=== PATIENT | male | born 1930 | race Caucasian/White ===

== ENCOUNTER 2018-01-16 08:34 | Inpatient (IN) ==
[2018-01-16] MEDS ORDERED: SODIUM CHLORIDE 0.9% 500 ML IV STA (09:12)
[2018-01-16 09:40] LABS: Basophils % 0.2 % (0.0-0.8); Hematocrit 40.8 VOL% (42.0-52.0); Hemoglobin 13.8 GM/DL (14.0-18.0); Immature Granulocytes % 0.5 %; Immature Granulocytes Absolute 0.05 #; Lymphocytes # 0.7 10*3/uL (1.4-4.0); Lymphocytes % 6.8 % (21.2-54.2); Mean Corpuscular HGB Conc 33.8 GM/DL (32-36); Mean Corpuscular Hemoglobin 33 PG (27-34); Mean Corpuscular Volume 96.5 FL (87-102); Monocytes # 0.5 10*3/uL (0.11-0.8); Monocytes % 4.7 % (1.7-12.7); Neutrophils # 9.4 10*3/uL (1.4-7.4); Neutrophils % 87.8 % (38.7-73.9); Platelet Count 279 T/CUMM (130-400); Red Blood Count 4.23 MC/CUMM (3.8-5.5); Red Cell Distribution Width 15.1 % (9.3-17.3); White Blood Count 10.7 T/CUMM (4-12)
[2018-01-16 09:58] LABS: Alanine Aminotransferase 29 U/L (16-61); Alkaline Phosphatase 76 U/L (45-117); Aspartate Amino Transferase 35 U/L (0-37); Blood Urea Nitrogen 30 MG/DL (7-18); Calcium 9.7 MG/DL (8.5-10.1); Glucose 166 MG/DL (74-106); Osmolality,Calculated 279.1 MOS/KG (273-304); Potassium 3.6 MMOL/L (3.5-5.1); Sodium 135 MMOL/L (136-145); Total Protein 8.9 G/DL (6.4-8.3); Troponin I Only < 0.015 NG/ML (0.00-0.045)
[2018-01-16] MEDS ORDERED: PIPERACILLIN/TAZOBACTAM 3,375 MG in SODIUM CHLORIDE 0.9% 100 ML IV STA (10:52)
[2018-01-16 11:44] LABS: Apearance,Urine CLEAR (Clear); Bilirubin,Urine Negative (Negative); Blood, Urine Negative (Negative); Glucose,Urine (UA) Negative (Negative); Ketones,Urine Negative (Negative); Nitrite,Urine Negative (Negative); Protein,Urine Negative; Squamous Epithelial Cell,Urine Occasional /HPF (0-10); Urine Color Yellow (Yellow); Urine Urobilinogen < 2.0 EU/DL (0.2-1.0); WBC,Urine <1 /HPF (0-6)
[2018-01-16] MEDS ORDERED: fentaNYL 100 MCG/2 ML VIAL ONE (13:41)
[2018-01-16] MEDS ORDERED: MIDAZOLAM 2 MG/2 ML VIAL ONE (13:41)
[2018-01-16] MEDS ORDERED: SEVOFLURANE 1 UNIT/15 MINUTE INH ONE (13:41)
[2018-01-16] MEDS ORDERED: ETOMIDATE 40 MG/20 ML VIAL IV ONE (13:41)
[2018-01-16 13:42] LABS: Apearance,Urine CLEAR (Clear); Bilirubin,Urine Negative (Negative); Blood, Urine Small mg/dL (Negative); Glucose,Urine (UA) Negative (Negative); Ketones,Urine Negative (Negative); Nitrite,Urine Negative (Negative); Protein,Urine Negative; RBC,Urine 1 /HPF (0-4); Urine Color Yellow (Yellow); Urine Specific Gravity 1.051 (1.001-1.035); Urine Urobilinogen < 2.0 EU/DL (0.2-1.0); WBC,Urine <1 /HPF (0-6)
[2018-01-16] MEDS ORDERED: PHENYLEPHRINE 1 MG/10 ML SYRINGE IV ONE (13:42)
[2018-01-16] MEDS ORDERED: SUCCINYLCHOLINE 200 MG/10 ML VIAL ONE (13:42)
[2018-01-16] MEDS ORDERED: ROCURONIUM 100 MG/10 ML VIAL IV ONE (13:42)
[2018-01-16] MEDS ORDERED: LACTATED RINGERS 1,000 ML IV ONE (13:42)
[2018-01-16] MEDS: LACTATED RINGERS 1,000 ML IV SCH ×2 (13:45→21:24)
[2018-01-16] MEDS ORDERED: PROPOFOL 1,000 MG/100 ML BOTTLE IV ONE (13:47)
[2018-01-16] MEDS ORDERED: ACETAMINOPHEN 325 MG TABLET PO PRN (13:48)
[2018-01-16 14:10] LABS: ABG Base Excess -1.4 MMOL/L (-2.5-2.5); ABG HCO3 23.2 MMOL/L (20-26); ABG Oxygen Saturation 96.8 % (95-100); ABG PCO2 54.1 MM HG (35-48); ABG PH 7.295 (7.35-7.45); ABG TCO2 22.9 MMOL/L (23-27)
[2018-01-16] MEDS ORDERED: SODIUM CHLORIDE 0.9% 1,000 ML IV ONE ×2 (14:13→19:24)
[2018-01-16 14:53] LABS: Hematocrit 28.1 VOL% (42.0-52.0); Hemoglobin 9.6 GM/DL (14.0-18.0)
[2018-01-16] MEDS ORDERED: PHENYLEPHRINE DRIP 40 MG/250 ML PREMIX IV ONE (15:14)
[2018-01-16 17:04] LABS: ABG Base Excess -1.5 MMOL/L (-2.5-2.5); ABG HCO3 23.1 MMOL/L (20-26); ABG Oxygen Saturation 98.2 % (95-100); ABG PH 7.384 (7.35-7.45); ABG TCO2 20.3 MMOL/L (23-27)
[2018-01-16] MEDS: PROPOFOL 1,000 MG/100 ML BOTTLE IV SCH ×2 (19:20→22:09)
[2018-01-16] MEDS: MORPHINE 4 MG/1 ML VIAL IV SCH ×5 (19:21→19:25)
[2018-01-16] MEDS: cefOXitin 2,000 MG in SYRINGE 1 EACH IV SCH ×2 (19:23→21:16)
[2018-01-16] MEDS: PHENYLEPHRINE DRIP 40 MG/250 ML PREMIX IV PRN ×2 (19:23→23:21)
[2018-01-16] MEDS ORDERED: MORPHINE 4 MG/1 ML VIAL IV PRN (19:28)
[2018-01-16] MEDS: MORPHINE 4 MG/1 ML VIAL IV PRN (20:37)
[2018-01-17 03:50] LABS: ABG Base Excess -0.1 MMOL/L (-2.5-2.5); ABG HCO3 24.3 MMOL/L (20-26); ABG Oxygen Saturation 98.8 % (95-100); ABG PCO2 32.7 MM HG (35-48); ABG PH 7.455 (7.35-7.45); ABG TCO2 19.9 MMOL/L (23-27)
[2018-01-17] MEDS: LACTATED RINGERS 1,000 ML IV SCH ×3 (03:58→19:26)
[2018-01-17] MEDS: cefOXitin 2,000 MG in SYRINGE 1 EACH IV SCH ×4 (03:59→23:33)
[2018-01-17] MEDS: MORPHINE 4 MG/1 ML VIAL IV PRN (04:31)
[2018-01-17] MEDS ORDERED: MEPERIDINE 25 MG/1 ML VIAL IV PRN (05:38)
[2018-01-17] MEDS: PROPOFOL 1,000 MG/100 ML BOTTLE IV SCH ×2 (07:02→17:52)
[2018-01-17] MEDS: MEPERIDINE 50 MG/1 ML VIAL IV PRN (09:29)
[2018-01-17] MEDS: PANTOPRAZOLE 40 MG VIAL IV SCH (09:29)
[2018-01-17 09:36] LABS: Basophils # 0.1 10*3/uL (0.0-0.2); Basophils % 0.5 % (0.0-0.8); Eosinophils % 0.1 % (0.00-10.9); Hematocrit 36.5 VOL% (42.0-52.0); Hemoglobin 12.4 GM/DL (14.0-18.0); Immature Granulocytes % 0.4 %; Immature Granulocytes Absolute 0.04 #; Lymphocytes # 1.3 10*3/uL (1.4-4.0); Lymphocytes % 12.4 % (21.2-54.2); Mean Corpuscular Hemoglobin 33 PG (27-34); Mean Corpuscular Volume 97.3 FL (87-102); Mean Platelet Volume 10.1 FL (9.6-12.0); Monocytes # 0.8 10*3/uL (0.11-0.8); Monocytes % 7.1 % (1.7-12.7); Neutrophils # 8.4 10*3/uL (1.4-7.4); Neutrophils % 79.5 % (38.7-73.9); Platelet Count 204 T/CUMM (130-400); Red Blood Count 3.75 MC/CUMM (3.8-5.5); Red Cell Distribution Width 15.6 % (9.3-17.3); White Blood Count 10.6 T/CUMM (4-12)
[2018-01-17 09:53] LABS: Hypochromasia 1+; Platelet Estimate Adequate
[2018-01-17 10:01] LABS: Calcium 7.5 MG/DL (8.5-10.1); Osmolality,Calculated 283.3 MOS/KG (273-304); Potassium 3.6 MMOL/L (3.5-5.1)
[2018-01-17] MEDS ORDERED: MAGNESIUM SULF RIDER 2 GM in PREMIX 1 EACH IV ONE (10:20)
[2018-01-17] MEDS ORDERED: MAGNESIUM SULF RIDER 50 ML IV ONE (10:22)
[2018-01-17] MEDS ORDERED: SKIN HEALING OINT (AQUAPHOR) 50 GM TUBE TOP PRN (10:33)
[2018-01-17] MEDS ORDERED: fentaNYL 100 MCG/2 ML VIAL ONE (17:32)
[2018-01-17] MEDS ORDERED: PROPOFOL 200 MG/20 ML VIAL IV ONE (17:32)
[2018-01-17] MEDS ORDERED: MIDAZOLAM 2 MG/2 ML VIAL ONE (17:33)
[2018-01-17] MEDS ORDERED: SEVOFLURANE 1 UNIT/15 MINUTE INH ONE (17:34)
[2018-01-17] MEDS ORDERED: ROCURONIUM 100 MG/10 ML VIAL IV ONE (17:34)
[2018-01-17] MEDS: fentaNYL INJ 1,250 MCG in SODIUM CHLORIDE 0.9% 225 ML IV PRN (23:37)
[2018-01-18] MEDS: PHENYLEPHRINE DRIP 40 MG/250 ML PREMIX IV PRN ×2 (00:46→13:15)
[2018-01-18] MEDS: fentaNYL INJ 1,250 MCG in SODIUM CHLORIDE 0.9% 225 ML IV PRN ×2 (02:08→04:40)
[2018-01-18] MEDS: PROPOFOL 1,000 MG/100 ML BOTTLE IV SCH (02:14)
[2018-01-18] MEDS: LACTATED RINGERS 1,000 ML IV SCH ×2 (03:27→17:31)
[2018-01-18 04:17] LABS: Allen Test Positive; Pt O2 Delivery Device Ventilator
[2018-01-18 04:18] LABS: ABG Base Excess -2.3 MMOL/L (-2.5-2.5); ABG HCO3 19.4 MMOL/L (20-26); ABG PCO2 25.2 MM HG (35-48); ABG PH 7.504 (7.35-7.45); ABG TCO2 20.2 MMOL/L (23-27)
[2018-01-18 04:21] LABS: Basophils # 0.1 10*3/uL (0.0-0.2); Basophils % 0.4 % (0.0-0.8); Eosinophils # 0.1 10*3/uL (0.0-0.87); Eosinophils % 0.6 % (0.00-10.9); Hematocrit 33.8 VOL% (42.0-52.0); Hemoglobin 11.5 GM/DL (14.0-18.0); Immature Granulocytes % 0.6 %; Immature Granulocytes Absolute 0.07 #; Lymphocytes # 1.5 10*3/uL (1.4-4.0); Mean Corpuscular Hemoglobin 33 PG (27-34); Mean Corpuscular Volume 96.8 FL (87-102); Mean Platelet Volume 10.6 FL (9.6-12.0); Monocytes # 0.6 10*3/uL (0.11-0.8); Neutrophils # 10.1 10*3/uL (1.4-7.4); Neutrophils % 81.4 % (38.7-73.9); Platelet Count 196 T/CUMM (130-400); Red Blood Count 3.49 MC/CUMM (3.8-5.5); Red Cell Distribution Width 15.5 % (9.3-17.3); White Blood Count 12.4 T/CUMM (4-12)
[2018-01-18] MEDS: cefOXitin 2,000 MG in SYRINGE 1 EACH IV SCH ×4 (04:30→21:00)
[2018-01-18 04:39] LABS: Calcium 7.6 MG/DL (8.5-10.1); Osmolality,Calculated 282.3 MOS/KG (273-304); Potassium 3.5 MMOL/L (3.5-5.1)
[2018-01-18 05:09] LABS: Band Neutrophils 45 % (0-10); Lymphocytes 14 % (20-55); Segmented Neutrophils 37 % (50-85); Total Cells Counted 100
[2018-01-18] MEDS ORDERED: FUROSEMIDE 40 MG/4 ML VIAL IV ONE (06:57)
[2018-01-18] MEDS ORDERED: MAGNESIUM SULF RIDER 4 GM in PREMIX 1 EACH IV PRN (07:08)
[2018-01-18] MEDS: MEPERIDINE 50 MG/1 ML VIAL IV PRN (08:10)
[2018-01-18] MEDS: MAGNESIUM SULF RIDER 2 GM in PREMIX 1 EACH IV PRN (08:30)
[2018-01-18] MEDS: PANTOPRAZOLE 40 MG VIAL IV SCH (08:45)
[2018-01-18 10:59] LABS: ABG Base Excess -4.4 MMOL/L (-2.5-2.5); ABG HCO3 20.8 MMOL/L (20-26); ABG PCO2 44.6 MM HG (35-48); ABG PH 7.303 (7.35-7.45); ABG PO2 93.9 MM HG (80-95); ABG TCO2 19.7 MMOL/L (23-27); Allen Test Positive; Pt O2 Delivery Device Ventilator
[2018-01-18 12:48] LABS: Allen Test Positive
[2018-01-18 12:49] LABS: ABG Base Excess -5.2 MMOL/L (-2.5-2.5); ABG HCO3 20.1 MMOL/L (20-26); ABG Oxygen Saturation 96.1 % (95-100); ABG PCO2 48.4 MM HG (35-48); ABG PH 7.267 (7.35-7.45); ABG PO2 96.3 MM HG (80-95); ABG TCO2 19.8 MMOL/L (23-27)
[2018-01-18] MEDS: ALBUTEROL/IPRATROPIUM 3 ML NEB RESP TX SCH ×2 (13:44→19:31)
[2018-01-19] MEDS: ALBUTEROL/IPRATROPIUM 3 ML NEB RESP TX SCH ×4 (00:06→19:15)
[2018-01-19] MEDS: PHENYLEPHRINE DRIP 40 MG/250 ML PREMIX IV PRN (00:13)
[2018-01-19] MEDS ORDERED: HALOPERIDOL 5 MG/ML AMP IM ONE (01:00)
[2018-01-19 01:13] LABS: ABG Base Excess -5.9 MMOL/L (-2.5-2.5); ABG HCO3 19.6 MMOL/L (20-26); ABG Oxygen Saturation 94.2 % (95-100); ABG PCO2 32.4 MM HG (35-48); ABG PH 7.366 (7.35-7.45); ABG PO2 70.2 MM HG (80-95); ABG TCO2 16.5 MMOL/L (23-27)
[2018-01-19 04:17] LABS: Basophils # 0.1 10*3/uL (0.0-0.2); Basophils % 0.3 % (0.0-0.8); Eosinophils % 0.2 % (0.00-10.9); Hematocrit 35.7 VOL% (42.0-52.0); Hemoglobin 11.6 GM/DL (14.0-18.0); Immature Granulocytes % 1.1 %; Immature Granulocytes Absolute 0.16 #; Lymphocytes # 0.8 10*3/uL (1.4-4.0); Lymphocytes % 5.5 % (21.2-54.2); Mean Corpuscular HGB Conc 32.5 GM/DL (32-36); Mean Corpuscular Hemoglobin 33 PG (27-34); Mean Corpuscular Volume 100.6 FL (87-102); Mean Platelet Volume 10.6 FL (9.6-12.0); Monocytes # 0.9 10*3/uL (0.11-0.8); Monocytes % 6.5 % (1.7-12.7); Neutrophils # 12.5 10*3/uL (1.4-7.4); Neutrophils % 86.4 % (38.7-73.9); Platelet Count 208 T/CUMM (130-400); Red Blood Count 3.55 MC/CUMM (3.8-5.5); Red Cell Distribution Width 15.6 % (9.3-17.3); White Blood Count 14.5 T/CUMM (4-12)
[2018-01-19] MEDS: cefOXitin 2,000 MG in SYRINGE 1 EACH IV SCH ×4 (05:09→22:11)
[2018-01-19] MEDS: LACTATED RINGERS 1,000 ML IV SCH (05:50)
[2018-01-19] MEDS: DEXTROSE 5% LACTATED RINGERS 1,000 ML IV SCH (06:39)
[2018-01-19] MEDS: PANTOPRAZOLE 40 MG VIAL IV SCH (09:48)
[2018-01-19] MEDS: MORPHINE 4 MG/1 ML VIAL IV PRN ×2 (09:58→11:40)
[2018-01-19] MEDS: ENOXAPARIN 40 MG/0.4 ML SYRINGE SUBCUT SCH (11:43)
[2018-01-19] MEDS ORDERED: DIGOXIN 0.5 MG/2 ML AMP IV ONE (15:48)
[2018-01-19] MEDS ORDERED: AMIODARONE INJ 150 MG in DEXTROSE 5% 100 ML IV ONE (17:23)
[2018-01-19] MEDS: MAGNESIUM SULF RIDER 2 GM in PREMIX 1 EACH IV PRN (17:25)
[2018-01-19] MEDS ORDERED: AMIODARONE INJ 450 MG in DEXTROSE 5% 241 ML IV SCH (17:30)
[2018-01-19 18:10] LABS: Calcium 7.9 MG/DL (8.5-10.1); Potassium 3.8 MMOL/L (3.5-5.1)
[2018-01-19] MEDS: ASCORBIC ACID 500 MG TABLET PO SCH (21:14)
[2018-01-20] MEDS: ALBUTEROL/IPRATROPIUM 3 ML NEB RESP TX SCH ×4 (00:36→19:11)
[2018-01-20] MEDS: AMIODARONE INJ 450 MG in DEXTROSE 5% 241 ML IV SCH ×2 (02:05→16:14)
[2018-01-20] MEDS: DEXTROSE 5% LACTATED RINGERS 1,000 ML IV SCH (03:26)
[2018-01-20] MEDS: cefOXitin 2,000 MG in SYRINGE 1 EACH IV SCH ×4 (04:15→22:19)
[2018-01-20 05:55] LABS: Basophils % 0.3 % (0.0-0.8); Eosinophils # 0.2 10*3/uL (0.0-0.87); Eosinophils % 1.8 % (0.00-10.9); Hematocrit 33.9 VOL% (42.0-52.0); Hemoglobin 11.6 GM/DL (14.0-18.0); Immature Granulocytes % 0.7 %; Immature Granulocytes Absolute 0.09 #; Lymphocytes # 1.1 10*3/uL (1.4-4.0); Lymphocytes % 8.1 % (21.2-54.2); Mean Corpuscular HGB Conc 34.2 GM/DL (32-36); Mean Corpuscular Hemoglobin 33 PG (27-34); Mean Corpuscular Volume 96.9 FL (87-102); Mean Platelet Volume 10.1 FL (9.6-12.0); Monocytes # 0.9 10*3/uL (0.11-0.8); Monocytes % 7.1 % (1.7-12.7); Neutrophils # 10.7 10*3/uL (1.4-7.4); Platelet Count 219 T/CUMM (130-400); Red Cell Distribution Width 14.9 % (9.3-17.3)
[2018-01-20 06:28] LABS: Calcium 8.2 MG/DL (8.5-10.1); Osmolality,Calculated 276.8 MOS/KG (273-304); Potassium 3.4 MMOL/L (3.5-5.1)
[2018-01-20] MEDS: ENOXAPARIN 40 MG/0.4 ML SYRINGE SUBCUT SCH (09:08)
[2018-01-20] MEDS: ASCORBIC ACID 500 MG TABLET PO SCH ×4 (09:08→21:19)
[2018-01-20] MEDS: PANTOPRAZOLE 40 MG VIAL IV SCH (09:08)
[2018-01-20] MEDS: POTASSIUM CHLORIDE 20 MEQ/15 ML UDCUP PER TUBE PRN ×4 (09:09→18:45)
[2018-01-21] MEDS: POTASSIUM CHLORIDE 20 MEQ/15 ML UDCUP PER TUBE PRN ×3 (00:14→04:40)
[2018-01-21] MEDS: DEXTROSE 5% LACTATED RINGERS 1,000 ML IV SCH ×3 (00:21→23:45)
[2018-01-21] MEDS: ALBUTEROL/IPRATROPIUM 3 ML NEB RESP TX SCH ×4 (00:57→19:55)
[2018-01-21] MEDS: cefOXitin 2,000 MG in SYRINGE 1 EACH IV SCH ×3 (04:18→16:27)
[2018-01-21 05:43] LABS: Basophils # 0.1 10*3/uL (0.0-0.2); Basophils % 0.5 % (0.0-0.8); Eosinophils # 0.2 10*3/uL (0.0-0.87); Eosinophils % 2.3 % (0.00-10.9); Hematocrit 34.2 VOL% (42.0-52.0); Hemoglobin 11.9 GM/DL (14.0-18.0); Immature Granulocytes % 1.1 %; Immature Granulocytes Absolute 0.12 #; Lymphocytes # 0.9 10*3/uL (1.4-4.0); Lymphocytes % 8.2 % (21.2-54.2); Mean Corpuscular HGB Conc 34.8 GM/DL (32-36); Mean Corpuscular Hemoglobin 33 PG (27-34); Mean Corpuscular Volume 94.2 FL (87-102); Mean Platelet Volume 10.4 FL (9.6-12.0); Monocytes # 0.4 10*3/uL (0.11-0.8); Monocytes % 4.1 % (1.7-12.7); Neutrophils # 8.9 10*3/uL (1.4-7.4); Neutrophils % 83.8 % (38.7-73.9); Platelet Count 256 T/CUMM (130-400); Red Blood Count 3.63 MC/CUMM (3.8-5.5); Red Cell Distribution Width 14.6 % (9.3-17.3); White Blood Count 10.6 T/CUMM (4-12)
[2018-01-21 06:11] LABS: Calcium 8.1 MG/DL (8.5-10.1); Osmolality,Calculated 281.5 MOS/KG (273-304); Potassium 3.7 MMOL/L (3.5-5.1)
[2018-01-21 06:19] LABS: Prealbumin 6.8 MG/DL (20-40)
[2018-01-21] MEDS: ENOXAPARIN 40 MG/0.4 ML SYRINGE SUBCUT SCH (08:02)
[2018-01-21] MEDS: PANTOPRAZOLE 40 MG VIAL IV SCH (08:02)
[2018-01-21] MEDS: ASCORBIC ACID 500 MG TABLET PO SCH ×2 (08:02→20:16)
[2018-01-21] MEDS: AMIODARONE INJ 450 MG in DEXTROSE 5% 241 ML IV SCH (08:03)
[2018-01-21 08:50] LABS: Apearance,Urine CLEAR (Clear); Bacteria,Urine Occasional /HPF (Few); Bilirubin,Urine Negative (Negative); Blood, Urine Moderate mg/dL (Negative); Glucose,Urine (UA) Negative (Negative); Ketones,Urine Negative (Negative); Mucus,Urine Occasional /LPF (Occasional); Nitrite,Urine Negative (Negative); Protein,Urine 30 MG/DL; RBC,Urine 17 /HPF (0-4); Squamous Epithelial Cell,Urine Occasional /HPF (0-10); Urine Color Yellow (Yellow); Urine Specific Gravity 1.017 (1.001-1.035); Urine Urobilinogen < 2.0 EU/DL (0.2-1.0); WBC,Urine 2 /HPF (0-6)
[2018-01-21] MEDS ORDERED: SODIUM PHOSPHATE INJ 15 MMOL in SODIUM CHLORIDE 0.9% 250 ML IV ONE (09:30)
[2018-01-21 10:49] LABS: Free T4 (Free Thyroxine) 0.84 NG/DL (0.76-1.46); Thyroid Stimulating Hormone 1.63 uIU/ml (0.358-3.74)
[2018-01-21] MEDS: miSOPROStol 200 MCG TABLET PO SCH ×3 (12:03→20:15)
[2018-01-21] MEDS: MORPHINE 4 MG/1 ML VIAL IV PRN ×2 (17:48→21:46)
[2018-01-22] MEDS: AMIODARONE INJ 450 MG in DEXTROSE 5% 241 ML IV SCH ×2 (00:51→19:25)
[2018-01-22] MEDS: ALBUTEROL/IPRATROPIUM 3 ML NEB RESP TX SCH ×5 (01:29→23:23)
[2018-01-22] MEDS: cefOXitin 2,000 MG in SYRINGE 1 EACH IV SCH ×2 (03:48→15:39)
[2018-01-22 05:34] LABS: Basophils % 0.3 % (0.0-0.8); Eosinophils # 0.2 10*3/uL (0.0-0.87); Eosinophils % 1.6 % (0.00-10.9); Hematocrit 30.7 VOL% (42.0-52.0); Hemoglobin 10.8 GM/DL (14.0-18.0); Immature Granulocytes % 1.9 %; Immature Granulocytes Absolute 0.25 #; Lymphocytes % 7.8 % (21.2-54.2); Mean Corpuscular HGB Conc 35.2 GM/DL (32-36); Mean Corpuscular Hemoglobin 33 PG (27-34); Mean Corpuscular Volume 94.5 FL (87-102); Mean Platelet Volume 10.5 FL (9.6-12.0); Monocytes # 1.1 10*3/uL (0.11-0.8); Monocytes % 8.5 % (1.7-12.7); Neutrophils # 10.4 10*3/uL (1.4-7.4); Neutrophils % 79.9 % (38.7-73.9); Platelet Count 258 T/CUMM (130-400); Red Blood Count 3.25 MC/CUMM (3.8-5.5); Red Cell Distribution Width 14.9 % (9.3-17.3)
[2018-01-22 05:56] LABS: Albumin 1.6 G/DL (3.4-5.0); Calcium 7.4 MG/DL (8.5-10.1); Osmolality,Calculated 280.4 MOS/KG (273-304); Potassium 3.6 MMOL/L (3.5-5.1)
[2018-01-22] MEDS ORDERED: FUROSEMIDE 40 MG/4 ML VIAL IV ONE (07:46)
[2018-01-22] MEDS: ALBUMIN 25% 25 GM in PREMIX 1 EACH IV SCH ×2 (08:05→15:38)
[2018-01-22] MEDS: FAMOTIDINE 20 MG TABLET PO SCH (08:06)
[2018-01-22] MEDS: POTASSIUM CHLORIDE 20 MEQ/15 ML UDCUP PER TUBE PRN (08:06)
[2018-01-22] MEDS: ASCORBIC ACID 500 MG TABLET PO SCH ×2 (08:06→21:04)
[2018-01-22] MEDS: miSOPROStol 200 MCG TABLET PO SCH ×4 (08:06→21:04)
[2018-01-22] MEDS: ENOXAPARIN 40 MG/0.4 ML SYRINGE SUBCUT SCH (08:06)
[2018-01-22] MEDS ORDERED: SODIUM PHOSPHATE INJ 15 MMOL in SODIUM CHLORIDE 0.9% 250 ML IV ONE (10:06)
[2018-01-22] MEDS: ALBUTEROL/IPRATROPIUM 3 ML NEB RESP TX PRN ×2 (10:21→17:04)
[2018-01-22] MEDS: THEOPHYLLINE 5.33 MG/ML 30 ML/BOTTLE PO SCH ×2 (13:27→21:04)
[2018-01-22] MEDS: ALBUTEROL 2 MG TABLET PO SCH ×2 (15:38→21:04)
[2018-01-22] MEDS: DEXTROSE 5% LACTATED RINGERS 1,000 ML IV SCH ×2 (19:26→19:45)
[2018-01-22] MEDS: AMIODARONE 200 MG TABLET PO SCH (21:05)
[2018-01-23] MEDS: ALBUMIN 25% 25 GM in PREMIX 1 EACH IV SCH ×4 (00:27→23:46)
[2018-01-23] MEDS: cefOXitin 2,000 MG in SYRINGE 1 EACH IV SCH ×3 (04:44→20:32)
[2018-01-23 05:27] LABS: Albumin 2.4 G/DL (3.4-5.0); Calcium 7.8 MG/DL (8.5-10.1); Osmolality,Calculated 277.7 MOS/KG (273-304); Potassium 3.4 MMOL/L (3.5-5.1)
[2018-01-23] MEDS: ALBUTEROL/IPRATROPIUM 3 ML NEB RESP TX SCH ×3 (06:56→19:17)
[2018-01-23] MEDS: FAMOTIDINE 20 MG TABLET PO SCH (08:06)
[2018-01-23] MEDS: ALBUTEROL 2 MG TABLET PO SCH ×3 (08:06→20:28)
[2018-01-23] MEDS: miSOPROStol 200 MCG TABLET PO SCH ×4 (08:07→20:28)
[2018-01-23] MEDS: FUROSEMIDE 40 MG/4 ML VIAL IV SCH ×2 (08:07→17:08)
[2018-01-23] MEDS: ENOXAPARIN 40 MG/0.4 ML SYRINGE SUBCUT SCH (08:07)
[2018-01-23] MEDS: THEOPHYLLINE 5.33 MG/ML 30 ML/BOTTLE PO SCH ×2 (08:07→20:27)
[2018-01-23] MEDS: AMIODARONE 200 MG TABLET PO SCH ×2 (08:07→20:28)
[2018-01-23] MEDS: ASCORBIC ACID 500 MG TABLET PO SCH ×2 (08:07→20:27)
[2018-01-23] MEDS: POTASSIUM CHLORIDE 20 MEQ/15 ML UDCUP PER TUBE PRN (09:32)
[2018-01-23] MEDS: ALBUTEROL/IPRATROPIUM 3 ML NEB RESP TX PRN (11:25)
[2018-01-23] MEDS: MORPHINE 4 MG/1 ML VIAL IV PRN ×2 (14:45→17:33)
[2018-01-23] MEDS: DEXTROSE 5% LACTATED RINGERS 1,000 ML IV SCH (16:17)
[2018-01-24] MEDS: ALBUTEROL/IPRATROPIUM 3 ML NEB RESP TX SCH ×4 (00:15→19:33)
[2018-01-24 04:50] LABS: Albumin 3.2 G/DL (3.4-5.0); Calcium 7.9 MG/DL (8.5-10.1); Potassium 3.5 MMOL/L (3.5-5.1)
[2018-01-24] MEDS: MORPHINE 4 MG/1 ML VIAL IV PRN ×2 (04:58→09:56)
[2018-01-24] MEDS: cefOXitin 2,000 MG in SYRINGE 1 EACH IV SCH ×3 (05:03→21:57)
[2018-01-24 05:18] LABS: Prealbumin 6.6 MG/DL (20-40)
[2018-01-24] MEDS: MAGNESIUM SULF RIDER 2 GM in PREMIX 1 EACH IV PRN (06:02)
[2018-01-24] MEDS: POTASSIUM CHLORIDE 20 MEQ/15 ML UDCUP PER TUBE PRN (06:03)
[2018-01-24 07:24] LABS: Total Protein (Chem) 5.9 G/DL (6.4-8.3)
[2018-01-24] MEDS: FUROSEMIDE 40 MG/4 ML VIAL IV SCH ×2 (08:21→18:22)
[2018-01-24] MEDS ORDERED: POTASSIUM CHLORIDE 20 MEQ TABLET PO SCH (09:00)
[2018-01-24] MEDS: ALBUMIN 25% 25 GM in PREMIX 1 EACH IV SCH ×3 (09:00→18:22)
[2018-01-24 09:20] LABS: Albumin (SPE) 2.7 G/DL (3.2-5.3); Albumin (SPE) Rel % 45.4 %; Alpha 1 (SPE) 0.4 G/DL (0.1-0.4); Alpha 1 (SPE) Rel % 7.2 %; Alpha 2 (SPE) 1.2 G/DL (0.4-1.0); Alpha 2 (SPE) Rel % 20.3 %; Beta (SPE) 0.9 G/DL (0.5-1.1); Beta (SPE) Rel % 14.8 %; Gamma (SPE) 0.7 G/DL (0.7-1.7); Gamma (SPE) Rel % 12.3 %
[2018-01-24] MEDS: miSOPROStol 200 MCG TABLET PO SCH ×4 (09:49→22:17)
[2018-01-24] MEDS: ALBUTEROL 2 MG TABLET PO SCH ×3 (09:50→23:31)
[2018-01-24] MEDS: FAMOTIDINE 20 MG TABLET PO SCH (09:50)
[2018-01-24] MEDS: ENOXAPARIN 40 MG/0.4 ML SYRINGE SUBCUT SCH (09:50)
[2018-01-24] MEDS: AMIODARONE 200 MG TABLET PO SCH ×2 (09:50→22:17)
[2018-01-24] MEDS: ASCORBIC ACID 500 MG TABLET PO SCH ×2 (09:51→22:17)
[2018-01-24] MEDS: THEOPHYLLINE 5.33 MG/ML 30 ML/BOTTLE PO SCH ×2 (10:00→23:31)
[2018-01-24] MEDS ORDERED: MAGNESIUM SULF RIDER 2 GM in PREMIX 1 EACH IV PRN (14:22)
[2018-01-24] MEDS ORDERED: MAGNESIUM SULF RIDER 4 GM in PREMIX 1 EACH IV PRN (14:22)
[2018-01-25] MEDS: ALBUTEROL/IPRATROPIUM 3 ML NEB RESP TX SCH ×4 (00:51→19:35)
[2018-01-25] MEDS: ALBUMIN 25% 25 GM in PREMIX 1 EACH IV SCH (02:45)
[2018-01-25] MEDS: cefOXitin 2,000 MG in SYRINGE 1 EACH IV SCH ×3 (06:35→20:14)
[2018-01-25 07:12] LABS: Basophils # 0.1 10*3/uL (0.0-0.2); Basophils % 0.4 % (0.0-0.8); Eosinophils # 0.6 10*3/uL (0.0-0.87); Eosinophils % 3.6 % (0.00-10.9); Hematocrit 25.7 VOL% (42.0-52.0); Hemoglobin 8.9 GM/DL (14.0-18.0); Immature Granulocytes Absolute 0.32 #; Lymphocytes # 1.3 10*3/uL (1.4-4.0); Lymphocytes % 8.1 % (21.2-54.2); Mean Corpuscular HGB Conc 34.6 GM/DL (32-36); Mean Corpuscular Hemoglobin 34 PG (27-34); Mean Corpuscular Volume 96.6 FL (87-102); Mean Platelet Volume 10.3 FL (9.6-12.0); Monocytes % 6.4 % (1.7-12.7); Neutrophils # 12.9 10*3/uL (1.4-7.4); Neutrophils % 79.5 % (38.7-73.9); Platelet Count 374 T/CUMM (130-400); Red Blood Count 2.66 MC/CUMM (3.8-5.5); Red Cell Distribution Width 15.3 % (9.3-17.3); White Blood Count 16.2 T/CUMM (4-12)
[2018-01-25 07:42] LABS: Albumin 3.3 G/DL (3.4-5.0); Calcium 8.2 MG/DL (8.5-10.1); Calcium 8.3 MG/DL (8.5-10.1); Osmolality,Calculated 275.1 MOS/KG (273-304); Potassium 4.2 MMOL/L (3.5-5.1)
[2018-01-25 07:49] LABS: Random Urine Protein (Bench) 120 MG/DL (<11.9)
[2018-01-25] MEDS: ENOXAPARIN 40 MG/0.4 ML SYRINGE SUBCUT SCH (09:29)
[2018-01-25] MEDS: FAMOTIDINE 20 MG TABLET PO SCH (09:30)
[2018-01-25] MEDS: AMIODARONE 200 MG TABLET PO SCH ×2 (09:30→20:15)
[2018-01-25] MEDS: ASCORBIC ACID 500 MG TABLET PO SCH ×2 (09:30→20:15)
[2018-01-25] MEDS: FUROSEMIDE 40 MG/4 ML VIAL IV SCH (10:32)
[2018-01-25] MEDS: miSOPROStol 200 MCG TABLET PO SCH (10:32)
[2018-01-25] MEDS: ALBUTEROL 2 MG TABLET PO SCH (10:33)
[2018-01-25] MEDS: DEXTROSE 5% LACTATED RINGERS 1,000 ML IV SCH (10:34)
[2018-01-25] MEDS: MORPHINE 4 MG/1 ML VIAL IV PRN (11:08)
[2018-01-25] MEDS: ONDANSETRON 4 MG/2 ML VIAL IV PRN (11:09)
[2018-01-25 13:33] LABS: Immuno Free Light Chain Kappa 2.62 MG/DL (0.33-1.94); Immuno Free Light Chain Lambda 2.26 MG/DL (0.57-2.63); Immuno Free Light Chain Ratio 1.16 MG/DL (0.26-1.65)
[2018-01-25] MEDS: THEOPHYLLINE 5.33 MG/ML 30 ML/BOTTLE PO SCH ×2 (14:30→20:19)
[2018-01-25 14:52] LABS: Apearance,Urine CLOUDY (Clear); Bacteria,Urine Occasional /HPF (Few); Bilirubin,Urine Negative (Negative); Blood, Urine Negative (Negative); Glucose,Urine (UA) Negative (Negative); Granular Casts,Urine 7 /LPF (0-1); Ketones,Urine 5 mg/dL (Negative); Mucus,Urine Occasional /LPF (Occasional); Nitrite,Urine Negative (Negative); Protein,Urine 30 MG/DL; RBC,Urine 17 /HPF (0-4); Urine Color Amber (Yellow); Urine Specific Gravity 1.017 (1.001-1.035); Urine Urobilinogen < 2.0 EU/DL (0.2-1.0); WBC,Urine 13 /HPF (0-6)
[2018-01-26] MEDS: ALBUTEROL/IPRATROPIUM 3 ML NEB RESP TX SCH ×4 (00:29→19:50)
[2018-01-26] MEDS: cefOXitin 2,000 MG in SYRINGE 1 EACH IV SCH ×3 (04:41→20:40)
[2018-01-26 05:53] LABS: Basophils # 0.1 10*3/uL (0.0-0.2); Basophils % 0.4 % (0.0-0.8); Eosinophils # 0.5 10*3/uL (0.0-0.87); Eosinophils % 2.9 % (0.00-10.9); Hematocrit 27.7 VOL% (42.0-52.0); Hemoglobin 9.2 GM/DL (14.0-18.0); Immature Granulocytes % 1.8 %; Immature Granulocytes Absolute 0.32 #; Lymphocytes # 1.2 10*3/uL (1.4-4.0); Lymphocytes % 6.6 % (21.2-54.2); Mean Corpuscular HGB Conc 33.2 GM/DL (32-36); Mean Corpuscular Hemoglobin 33 PG (27-34); Mean Corpuscular Volume 99.3 FL (87-102); Mean Platelet Volume 10.1 FL (9.6-12.0); Monocytes # 1.2 10*3/uL (0.11-0.8); Monocytes % 6.9 % (1.7-12.7); Neutrophils # 14.5 10*3/uL (1.4-7.4); Neutrophils % 81.4 % (38.7-73.9); Platelet Count 461 T/CUMM (130-400); Red Blood Count 2.79 MC/CUMM (3.8-5.5); Red Cell Distribution Width 15.3 % (9.3-17.3); White Blood Count 17.9 T/CUMM (4-12)
[2018-01-26 06:07] LABS: Calcium 8.4 MG/DL (8.5-10.1); Osmolality,Calculated 281.8 MOS/KG (273-304); Potassium 3.9 MMOL/L (3.5-5.1)
[2018-01-26] MEDS ORDERED: FUROSEMIDE 40 MG/4 ML VIAL IV SCH (08:00)
[2018-01-26] MEDS: ASCORBIC ACID 500 MG TABLET PO SCH ×2 (08:43→20:34)
[2018-01-26] MEDS: ENOXAPARIN 40 MG/0.4 ML SYRINGE SUBCUT SCH (08:43)
[2018-01-26] MEDS: THEOPHYLLINE 5.33 MG/ML 30 ML/BOTTLE PO SCH ×2 (08:43→20:35)
[2018-01-26] MEDS: FAMOTIDINE 20 MG TABLET PO SCH (08:43)
[2018-01-26] MEDS: AMIODARONE 200 MG TABLET PO SCH ×2 (08:43→20:34)
[2018-01-26] MEDS: FUROSEMIDE 40 MG TABLET PO SCH (16:54)
[2018-01-27] MEDS: ALBUTEROL/IPRATROPIUM 3 ML NEB RESP TX SCH ×4 (00:17→19:26)
[2018-01-27] MEDS: cefOXitin 2,000 MG in SYRINGE 1 EACH IV SCH (05:21)
[2018-01-27 05:33] LABS: Basophils # 0.1 10*3/uL (0.0-0.2); Basophils % 0.3 % (0.0-0.8); Eosinophils # 0.5 10*3/uL (0.0-0.87); Eosinophils % 3.6 % (0.00-10.9); Hematocrit 27.6 VOL% (42.0-52.0); Hemoglobin 9.5 GM/DL (14.0-18.0); Immature Granulocytes % 1.7 %; Immature Granulocytes Absolute 0.26 #; Lymphocytes # 1.2 10*3/uL (1.4-4.0); Mean Corpuscular HGB Conc 34.4 GM/DL (32-36); Mean Corpuscular Hemoglobin 33 PG (27-34); Mean Corpuscular Volume 95.8 FL (87-102); Mean Platelet Volume 9.8 FL (9.6-12.0); Monocytes # 1.2 10*3/uL (0.11-0.8); Monocytes % 7.8 % (1.7-12.7); Neutrophils % 78.6 % (38.7-73.9); Platelet Count 537 T/CUMM (130-400); Red Blood Count 2.88 MC/CUMM (3.8-5.5); Red Cell Distribution Width 15.3 % (9.3-17.3); White Blood Count 15.2 T/CUMM (4-12)
[2018-01-27 06:04] LABS: Calcium 8.4 MG/DL (8.5-10.1); Osmolality,Calculated 283.8 MOS/KG (273-304); Potassium 3.6 MMOL/L (3.5-5.1)
[2018-01-27] MEDS: FUROSEMIDE 40 MG TABLET PO SCH ×2 (08:28→15:09)
[2018-01-27] MEDS: FAMOTIDINE 20 MG TABLET PO SCH (08:28)
[2018-01-27] MEDS: AMIODARONE 200 MG TABLET PO SCH ×2 (08:28→20:44)
[2018-01-27] MEDS: ENOXAPARIN 40 MG/0.4 ML SYRINGE SUBCUT SCH (08:28)
[2018-01-27] MEDS: ASCORBIC ACID 500 MG TABLET PO SCH ×2 (08:28→20:44)
[2018-01-27] MEDS: THEOPHYLLINE 5.33 MG/ML 30 ML/BOTTLE PO SCH ×2 (08:29→20:50)
[2018-01-27] MEDS: SERTRALINE 50 MG TABLET PO SCH (15:09)
[2018-01-28] MEDS: ALBUTEROL/IPRATROPIUM 3 ML NEB RESP TX SCH ×4 (00:19→19:56)
[2018-01-28 05:02] LABS: Basophils # 0.1 10*3/uL (0.0-0.2); Basophils % 0.5 % (0.0-0.8); Eosinophils # 0.6 10*3/uL (0.0-0.87); Eosinophils % 4.5 % (0.00-10.9); Hematocrit 27.6 VOL% (42.0-52.0); Hemoglobin 9.7 GM/DL (14.0-18.0); Immature Granulocytes % 1.7 %; Immature Granulocytes Absolute 0.23 #; Lymphocytes # 1.3 10*3/uL (1.4-4.0); Lymphocytes % 9.6 % (21.2-54.2); Mean Corpuscular HGB Conc 35.1 GM/DL (32-36); Mean Corpuscular Hemoglobin 33 PG (27-34); Mean Corpuscular Volume 94.8 FL (87-102); Mean Platelet Volume 9.9 FL (9.6-12.0); Monocytes # 1.2 10*3/uL (0.11-0.8); Monocytes % 8.7 % (1.7-12.7); Neutrophils # 9.9 10*3/uL (1.4-7.4); Platelet Count 616 T/CUMM (130-400); Red Blood Count 2.91 MC/CUMM (3.8-5.5); Red Cell Distribution Width 15.1 % (9.3-17.3); White Blood Count 13.2 T/CUMM (4-12)
[2018-01-28 05:16] LABS: Prealbumin 4.8 MG/DL (20-40)
[2018-01-28 05:23] LABS: Calcium 8.4 MG/DL (8.5-10.1); Osmolality,Calculated 283.8 MOS/KG (273-304); Potassium 3.3 MMOL/L (3.5-5.1)
[2018-01-28] MEDS ORDERED: DEXTROSE 50% 25 GM/50 ML VIAL IV PRN (09:10)
[2018-01-28] MEDS ORDERED: GLUCAGON 1 MG VIAL IM PRN (09:10)
[2018-01-28] MEDS: ENOXAPARIN 40 MG/0.4 ML SYRINGE SUBCUT SCH (09:57)
[2018-01-28] MEDS: AMIODARONE 200 MG TABLET PO SCH ×2 (10:00→21:18)
[2018-01-28] MEDS: FAMOTIDINE 20 MG TABLET PO SCH (10:11)
[2018-01-28] MEDS: FUROSEMIDE 40 MG TABLET PO SCH ×2 (10:11→15:24)
[2018-01-28] MEDS: ASCORBIC ACID 500 MG TABLET PO SCH ×2 (10:11→21:18)
[2018-01-28] MEDS: SERTRALINE 50 MG TABLET PO SCH (10:11)
[2018-01-28] MEDS: THEOPHYLLINE 5.33 MG/ML 30 ML/BOTTLE PO SCH ×2 (10:21→21:20)
[2018-01-28] MEDS ORDERED: TUBERCULIN SKIN TEST 0.1 ML SYRINGE INTRADERM ONE (11:36)
[2018-01-28] MEDS: POTASSIUM CHLORIDE 20 MEQ/15 ML UDCUP PER TUBE PRN ×3 (19:32→23:51)
[2018-01-29] MEDS: ALBUTEROL/IPRATROPIUM 3 ML NEB RESP TX SCH ×5 (00:54→19:45)
[2018-01-29 05:38] LABS: Calcium 8.5 MG/DL (8.5-10.1); Osmolality,Calculated 282.8 MOS/KG (273-304); Potassium 3.7 MMOL/L (3.5-5.1)
[2018-01-29] MEDS: ASCORBIC ACID 500 MG TABLET PO SCH ×2 (10:13→21:11)
[2018-01-29] MEDS: FUROSEMIDE 40 MG TABLET PO SCH ×2 (10:13→17:48)
[2018-01-29] MEDS: AMIODARONE 200 MG TABLET PO SCH (10:13)
[2018-01-29] MEDS: FAMOTIDINE 20 MG TABLET PO SCH (10:13)
[2018-01-29] MEDS: ENOXAPARIN 40 MG/0.4 ML SYRINGE SUBCUT SCH (10:14)
[2018-01-29] MEDS: THEOPHYLLINE 5.33 MG/ML 30 ML/BOTTLE PO SCH ×2 (10:30→21:11)
[2018-01-29] MEDS: SERTRALINE 50 MG TABLET PO SCH (17:48)
[2018-01-30] MEDS: ALBUTEROL/IPRATROPIUM 3 ML NEB RESP TX SCH ×4 (02:11→19:18)
[2018-01-30] MEDS: ENOXAPARIN 40 MG/0.4 ML SYRINGE SUBCUT SCH (09:43)
[2018-01-30] MEDS: FUROSEMIDE 40 MG TABLET PO SCH ×2 (11:21→18:08)
[2018-01-30] MEDS: ASCORBIC ACID 500 MG TABLET PO SCH ×2 (11:21→21:09)
[2018-01-30] MEDS: FAMOTIDINE 20 MG TABLET PO SCH (11:21)
[2018-01-30] MEDS: AMIODARONE 200 MG TABLET PO SCH (11:21)
[2018-01-30] MEDS: THEOPHYLLINE 5.33 MG/ML 30 ML/BOTTLE PO SCH ×2 (11:29→21:09)
[2018-01-30] MEDS: SERTRALINE 50 MG TABLET PO SCH (18:08)
[2018-01-31] MEDS: ALBUTEROL/IPRATROPIUM 3 ML NEB RESP TX SCH ×4 (01:11→20:14)
[2018-01-31] MEDS: ENOXAPARIN 40 MG/0.4 ML SYRINGE SUBCUT SCH (09:06)
[2018-01-31] MEDS: FUROSEMIDE 40 MG TABLET PO SCH ×2 (09:07→16:12)
[2018-01-31] MEDS: SERTRALINE 50 MG TABLET PO SCH (09:07)
[2018-01-31] MEDS: AMIODARONE 200 MG TABLET PO SCH (09:07)
[2018-01-31] MEDS: FAMOTIDINE 20 MG TABLET PO SCH (09:07)
[2018-01-31] MEDS: ASCORBIC ACID 500 MG TABLET PO SCH ×2 (09:07→20:06)
[2018-01-31] MEDS: THEOPHYLLINE 5.33 MG/ML 30 ML/BOTTLE PO SCH ×2 (09:07→20:07)
[2018-01-31 11:43] LABS: Basophils # 0.1 10*3/uL (0.0-0.2); Basophils % 0.6 % (0.0-0.8); Eosinophils # 0.8 10*3/uL (0.0-0.87); Eosinophils % 7.5 % (0.00-10.9); Hematocrit 28.3 VOL% (42.0-52.0); Hemoglobin 9.5 GM/DL (14.0-18.0); Immature Granulocytes % 1.2 %; Immature Granulocytes Absolute 0.13 #; Lymphocytes # 1.9 10*3/uL (1.4-4.0); Lymphocytes % 17.3 % (21.2-54.2); Mean Corpuscular HGB Conc 33.6 GM/DL (32-36); Mean Corpuscular Hemoglobin 32 PG (27-34); Mean Corpuscular Volume 95.3 FL (87-102); Mean Platelet Volume 9.3 FL (9.6-12.0); Monocytes # 0.8 10*3/uL (0.11-0.8); Monocytes % 7.3 % (1.7-12.7); Neutrophils # 7.3 10*3/uL (1.4-7.4); Neutrophils % 66.1 % (38.7-73.9); Platelet Count 570 T/CUMM (130-400); Red Blood Count 2.97 MC/CUMM (3.8-5.5); Red Cell Distribution Width 15.4 % (9.3-17.3); White Blood Count 11.1 T/CUMM (4-12)
[2018-01-31 12:17] LABS: Calcium 8.1 MG/DL (8.5-10.1); Potassium 3.2 MMOL/L (3.5-5.1)
[2018-01-31 12:22] LABS: Band Neutrophils 10 % (0-10); Eosinophils 9 % (0-10); Lymphocytes 19 % (20-55); Platelet Estimate Increased; Segmented Neutrophils 57 % (50-85); Total Cells Counted 100
[2018-01-31 12:23] LABS: Anisocytosis 1+; Macrocytosis 1+
[2018-01-31] MEDS: DESITIN 4OZ/NYSTATIN 15 GRAM MIXTURE PASTE TOP SCH ×2 (16:12→20:07)
[2018-01-31] MEDS: ONDANSETRON 4 MG/2 ML VIAL IV PRN (20:06)
[2018-02-01] MEDS: ALBUTEROL/IPRATROPIUM 3 ML NEB RESP TX SCH ×3 (01:17→13:25)
[2018-02-01] MEDS: FAMOTIDINE 20 MG TABLET PO SCH (08:11)
[2018-02-01] MEDS: ASCORBIC ACID 500 MG TABLET PO SCH (08:11)
[2018-02-01] MEDS: SERTRALINE 50 MG TABLET PO SCH (08:11)
[2018-02-01] MEDS: AMIODARONE 200 MG TABLET PO SCH (08:11)
[2018-02-01] MEDS: DESITIN 4OZ/NYSTATIN 15 GRAM MIXTURE PASTE TOP SCH (08:11)
[2018-02-01] MEDS: FUROSEMIDE 40 MG TABLET PO SCH (08:11)
[2018-02-01] MEDS: ENOXAPARIN 40 MG/0.4 ML SYRINGE SUBCUT SCH (08:12)
[2018-02-01 10:41] LABS: Calcium 7.8 MG/DL (8.5-10.1); Potassium 3.5 MMOL/L (3.5-5.1)
[2018-02-01] MEDS: THEOPHYLLINE 5.33 MG/ML 30 ML/BOTTLE PO SCH (11:09)
[2018-02-01] MEDS: MAGNESIUM SULF RIDER 2 GM in PREMIX 1 EACH IV PRN (11:11)
[2018-02-01] MEDS: POTASSIUM CHLORIDE 20 MEQ/15 ML UDCUP PER TUBE PRN (11:13)
[2018-02-01] MEDS ORDERED: POTASSIUM CHLORIDE 20 MEQ TABLET PO ONE (11:30)
[2018-02-01 12:00] VITALS: BP 92/62
== END 2018-02-01 14:04 | DRG 326 ==
LOC: N.ED 08:34 → N.ICU 11:55 → N.EDINP 13:48 → N.ICU 14:16 → N.3E 01-24 20:42
PROVIDERS: ADMIT Surgery; ATTEND Surgery

== ENCOUNTER 2018-03-01 05:30 | Inpatient (IN) ==
[2018-03-01] MEDS ORDERED: PANTOPRAZOLE 40 MG VIAL IV STA (06:10)
[2018-03-01] MEDS ORDERED: SODIUM CHLORIDE 0.9% 1,000 ML IV STA (06:10)
[2018-03-01 06:40] LABS: Basophils # 0.1 10*3/uL (0.0-0.2); Basophils % 0.5 % (0.0-0.8); Eosinophils # 0.1 10*3/uL (0.0-0.87); Eosinophils % 0.5 % (0.00-10.9); Hematocrit 28.1 VOL% (42.0-52.0); Immature Granulocytes % 1.6 %; Immature Granulocytes Absolute 0.19 #; Lymphocytes # 1.8 10*3/uL (1.4-4.0); Lymphocytes % 15.5 % (21.2-54.2); Mean Corpuscular Hemoglobin 31 PG (27-34); Mean Corpuscular Volume 96.9 FL (87-102); Mean Platelet Volume 9.6 FL (9.6-12.0); Monocytes % 8.3 % (1.7-12.7); Neutrophils # 8.7 10*3/uL (1.4-7.4); Neutrophils % 73.6 % (38.7-73.9); Platelet Count 365 T/CUMM (130-400); Red Cell Distribution Width 15.2 % (9.3-17.3); White Blood Count 11.9 T/CUMM (4-12)
[2018-03-01 06:48] LABS: INR 1.1; PT Patient Result 11.4 SECS; Partial Thromboplastin Time 29.6 SECS (0-40)
[2018-03-01 07:06] LABS: Alanine Aminotransferase 47 U/L (16-61); Alkaline Phosphatase 82 U/L (45-117); Aspartate Amino Transferase 50 U/L (0-37); Bilirubin,Total < 0.39 MG/DL (0.2-1.0); Blood Urea Nitrogen 33 MG/DL (7-18); Calcium 7.3 MG/DL (8.5-10.1); Glucose 108 MG/DL (74-106); Osmolality,Calculated 286.4 MOS/KG (273-304); Potassium 4.1 MMOL/L (3.5-5.1); Sodium 140 MMOL/L (136-145); Total Protein 6.4 G/DL (6.4-8.3)
[2018-03-01] MEDS ORDERED: SODIUM CHLORIDE 0.9% 1,000 ML IV PRN ×3 (07:28→12:34)
[2018-03-01] MEDS ORDERED: ALBUTEROL 2.5 MG/3 ML NEB RESP TX PRN (08:27)
[2018-03-01] MEDS: SODIUM CHLORIDE 0.9% 1,000 ML IV SCH ×3 (08:50→23:00)
[2018-03-01 10:25] LABS: Lactic Acid 2.5 MMOL/L (0.4-2.0)
[2018-03-01] MEDS: AMIODARONE 200 MG TABLET PO SCH (10:27)
[2018-03-01 11:15] LABS: INR 1.1; PT Patient Result 11.4 SECS
[2018-03-01 11:17] LABS: Apearance,Urine CLEAR (Clear); Bilirubin,Urine Negative (Negative); Blood, Urine Negative (Negative); Glucose,Urine (UA) Negative (Negative); Ketones,Urine Negative (Negative); Mucus,Urine Occasional /LPF (Occasional); Nitrite,Urine Negative (Negative); Protein,Urine Negative; RBC,Urine 1 /HPF (0-4); Urine Color Yellow (Yellow); Urine Specific Gravity 1.009 (1.001-1.035); Urine Urobilinogen < 2.0 EU/DL (0.2-1.0); WBC,Urine <1 /HPF (0-6)
[2018-03-01] MEDS ORDERED: PHENYLEPHRINE 1 MG/10 ML SYRINGE IV ONE (17:39)
[2018-03-01] MEDS ORDERED: ETOMIDATE 40 MG/20 ML VIAL IV ONE (17:39)
[2018-03-01] MEDS ORDERED: POLYETHYLENE GLYCOL 3350/ELECTROLYTES 4,000 ML BOTTLE PER TUBE ONE (17:39)
[2018-03-01] MEDS: PANTOPRAZOLE 40 MG VIAL IV SCH (18:31)
[2018-03-01 19:54] LABS: Hematocrit 38.2 VOL% (42.0-52.0)
[2018-03-01 20:09] LABS: Hemoglobin 13.1 GM/DL (14.0-18.0)
[2018-03-01 20:20] LABS: Lactic Acid 3.5 MMOL/L (0.4-2.0)
[2018-03-01] MEDS ORDERED: SODIUM CHLORIDE 0.9% 500 ML IV ONE (21:30)
[2018-03-02 03:35] LABS: Basophils # 0.1 10*3/uL (0.0-0.2); Basophils % 0.7 % (0.0-0.8); Eosinophils % 0.5 % (0.00-10.9); Hematocrit 32.4 VOL% (42.0-52.0); Hematocrit 33.4 VOL% (42.0-52.0); Hemoglobin 11.2 GM/DL (14.0-18.0); Immature Granulocytes % 1.3 %; Immature Granulocytes Absolute 0.11 #; Lymphocytes # 2.5 10*3/uL (1.4-4.0); Lymphocytes % 30.4 % (21.2-54.2); Mean Corpuscular HGB Conc 32.9 GM/DL (32-36); Mean Corpuscular Hemoglobin 30 PG (27-34); Mean Platelet Volume 10.2 FL (9.6-12.0); Monocytes # 0.8 10*3/uL (0.11-0.8); Neutrophils # 4.7 10*3/uL (1.4-7.4); Neutrophils % 57.1 % (38.7-73.9); Platelet Count 215 T/CUMM (130-400); Red Blood Count 3.67 MC/CUMM (3.8-5.5); Red Cell Distribution Width 16.4 % (9.3-17.3); White Blood Count 8.3 T/CUMM (4-12)
[2018-03-02 04:07] LABS: Albumin 1.8 G/DL (3.4-5.0); Bilirubin,Total 0.6 MG/DL (0.2-1.0); Calcium 7.7 MG/DL (8.5-10.1); Osmolality,Calculated 298.6 MOS/KG (273-304); Potassium 3.8 MMOL/L (3.5-5.1); Total Protein 5.6 G/DL (6.4-8.3)
[2018-03-02] MEDS: SODIUM CHLORIDE 0.9% 1,000 ML IV SCH ×3 (06:02→21:30)
[2018-03-02] MEDS: PANTOPRAZOLE 40 MG VIAL IV SCH ×2 (06:07→19:17)
[2018-03-02 08:34] LABS: Hematocrit 27.6 VOL% (42.0-52.0); Hemoglobin 9.5 GM/DL (14.0-18.0)
[2018-03-02] MEDS: AMIODARONE 200 MG TABLET PO SCH (09:54)
[2018-03-02] MEDS ORDERED: PROPOFOL 200 MG/20 ML VIAL IV ONE (14:09)
[2018-03-02] MEDS ORDERED: ETOMIDATE 40 MG/20 ML VIAL IV ONE (14:09)
[2018-03-02] MEDS ORDERED: PHENYLEPHRINE 1 MG/10 ML SYRINGE IV ONE (14:10)
[2018-03-02 20:55] LABS: Hematocrit 29.5 VOL% (42.0-52.0); Hemoglobin 10.2 GM/DL (14.0-18.0)
[2018-03-03 04:24] LABS: Basophils % 0.5 % (0.0-0.8); Eosinophils # 0.1 10*3/uL (0.0-0.87); Eosinophils % 0.9 % (0.00-10.9); Hematocrit 28.8 VOL% (42.0-52.0); Hemoglobin 9.8 GM/DL (14.0-18.0); Immature Granulocytes % 0.9 %; Immature Granulocytes Absolute 0.07 #; Lymphocytes # 1.9 10*3/uL (1.4-4.0); Lymphocytes % 24.5 % (21.2-54.2); Mean Corpuscular Hemoglobin 30 PG (27-34); Mean Corpuscular Volume 88.9 FL (87-102); Mean Platelet Volume 11.2 FL (9.6-12.0); Monocytes # 0.8 10*3/uL (0.11-0.8); Monocytes % 10.2 % (1.7-12.7); NRBC # 0.02 10*3/uL; Neutrophils # 4.8 10*3/uL (1.4-7.4); Platelet Count 137 T/CUMM (130-400); Red Blood Count 3.24 MC/CUMM (3.8-5.5); Red Cell Distribution Width 17.1 % (9.3-17.3); White Blood Count 7.6 T/CUMM (4-12)
[2018-03-03 04:56] LABS: Calcium 7.7 MG/DL (8.5-10.1); Osmolality,Calculated 297.4 MOS/KG (273-304); Potassium 3.8 MMOL/L (3.5-5.1)
[2018-03-03] MEDS: SODIUM CHLORIDE 0.9% 1,000 ML IV SCH ×2 (06:26→16:26)
[2018-03-03] MEDS: PANTOPRAZOLE 40 MG VIAL IV SCH ×2 (07:00→18:50)
[2018-03-03] MEDS: AMIODARONE 200 MG TABLET PO SCH (09:14)
[2018-03-04 06:01] LABS: Basophils % 0.4 % (0.0-0.8); Eosinophils # 0.1 10*3/uL (0.0-0.87); Eosinophils % 0.6 % (0.00-10.9); Hematocrit 26.5 VOL% (42.0-52.0); Hemoglobin 8.8 GM/DL (14.0-18.0); Immature Granulocytes % 0.8 %; Immature Granulocytes Absolute 0.08 #; Lymphocytes # 1.9 10*3/uL (1.4-4.0); Lymphocytes % 19.7 % (21.2-54.2); Mean Corpuscular HGB Conc 33.2 GM/DL (32-36); Mean Corpuscular Hemoglobin 30 PG (27-34); Mean Corpuscular Volume 91.4 FL (87-102); Mean Platelet Volume 10.8 FL (9.6-12.0); Monocytes # 0.7 10*3/uL (0.11-0.8); Monocytes % 6.8 % (1.7-12.7); NRBC # 0.02 10*3/uL; Neutrophils # 6.9 10*3/uL (1.4-7.4); Neutrophils % 71.7 % (38.7-73.9); Platelet Count 125 T/CUMM (130-400); Red Cell Distribution Width 16.4 % (9.3-17.3); White Blood Count 9.6 T/CUMM (4-12)
[2018-03-04] MEDS: PANTOPRAZOLE 40 MG VIAL IV SCH (06:22)
[2018-03-04 06:37] LABS: Calcium 7.4 MG/DL (8.5-10.1); Osmolality,Calculated 282.3 MOS/KG (273-304); Potassium 3.5 MMOL/L (3.5-5.1)
[2018-03-04] MEDS: ALUMINUM/MAGNES/SIMETH MAX STR 30 ML UDCUP PO PRN (07:30)
[2018-03-04] MEDS: AMIODARONE 200 MG TABLET PO SCH (09:13)
[2018-03-04] MEDS: ASCORBIC ACID 500 MG TABLET PO SCH ×2 (16:43→20:25)
[2018-03-04] MEDS: COLCHICINE 0.6 MG TABLET PO SCH (16:43)
[2018-03-04] MEDS: ALLOPURINOL 300 MG TABLET PO SCH (16:43)
[2018-03-04 17:21] LABS: Hematocrit 28.3 VOL% (42.0-52.0); Hemoglobin 9.4 GM/DL (14.0-18.0)
[2018-03-04] MEDS ORDERED: SODIUM CHLORIDE 0.9% 1,000 ML IV ONE (17:52)
[2018-03-04] MEDS: SODIUM CHLORIDE 0.9% 1,000 ML IV SCH (19:23)
[2018-03-04] MEDS ORDERED: NOREPINEPHRINE 4 MG/4 ML VIAL IV ONE (19:42)
[2018-03-04] MEDS: NOREPINEPHRINE 8 MG in SODIUM CHLORIDE 0.9% 242 ML IV PRN ×2 (19:45→23:43)
[2018-03-04] MEDS: POLYETHYLENE GLYCOL POWDER 17 GM PACK PO SCH (20:26)
[2018-03-04 20:56] LABS: Hematocrit 24.9 VOL% (42.0-52.0)
[2018-03-05] MEDS: NOREPINEPHRINE 8 MG in SODIUM CHLORIDE 0.9% 242 ML IV PRN ×3 (03:04→22:34)
[2018-03-05 04:08] LABS: Basophils % 0.2 % (0.0-0.8); Hemoglobin 9.3 GM/DL (14.0-18.0); Immature Granulocytes % 2.6 %; Immature Granulocytes Absolute 0.49 #; Lymphocytes # 2.1 10*3/uL (1.4-4.0); Mean Corpuscular HGB Conc 33.2 GM/DL (32-36); Mean Corpuscular Hemoglobin 29 PG (27-34); Mean Corpuscular Volume 87.8 FL (87-102); Mean Platelet Volume 10.4 FL (9.6-12.0); Monocytes # 1.2 10*3/uL (0.11-0.8); NRBC # 0.03 10*3/uL; Neutrophils # 15.3 10*3/uL (1.4-7.4); Neutrophils % 80.2 % (38.7-73.9); Platelet Count 150 T/CUMM (130-400); Red Blood Count 3.19 MC/CUMM (3.8-5.5); Red Cell Distribution Width 20.9 % (9.3-17.3); White Blood Count 19.1 T/CUMM (4-12)
[2018-03-05 04:30] LABS: Calcium 7.4 MG/DL (8.5-10.1); Osmolality,Calculated 280.8 MOS/KG (273-304); Potassium 3.9 MMOL/L (3.5-5.1)
[2018-03-05] MEDS: SODIUM CHLORIDE 0.9% 1,000 ML IV SCH ×2 (06:04→14:03)
[2018-03-05] MEDS: ASCORBIC ACID 500 MG TABLET PO SCH ×2 (08:43→20:29)
[2018-03-05] MEDS: ALLOPURINOL 300 MG TABLET PO SCH (08:43)
[2018-03-05] MEDS: AMIODARONE 200 MG TABLET PO SCH (08:43)
[2018-03-05] MEDS: POLYETHYLENE GLYCOL POWDER 17 GM PACK PO SCH ×4 (08:43→20:29)
[2018-03-05] MEDS: COLCHICINE 0.6 MG TABLET PO SCH (08:43)
[2018-03-05] MEDS: PANTOPRAZOLE 40 MG TABLET PO SCH (08:43)
[2018-03-05 11:05] LABS: Hematocrit 27.3 VOL% (42.0-52.0); Hemoglobin 9.1 GM/DL (14.0-18.0)
[2018-03-05 19:21] LABS: Hematocrit 26.5 VOL% (42.0-52.0); Hemoglobin 8.7 GM/DL (14.0-18.0)
[2018-03-06] MEDS: SODIUM CHLORIDE 0.9% 1,000 ML IV SCH ×2 (00:25→10:19)
[2018-03-06 03:16] LABS: Hematocrit 24.6 VOL% (42.0-52.0); Hemoglobin 8.2 GM/DL (14.0-18.0)
[2018-03-06 03:29] LABS: Calcium 6.8 MG/DL (8.5-10.1); Osmolality,Calculated 277.5 MOS/KG (273-304); Potassium 3.3 MMOL/L (3.5-5.1)
[2018-03-06 04:47] LABS: Basophils % 0.2 % (0.0-0.8); Eosinophils # 0.1 10*3/uL (0.0-0.87); Hematocrit 24.5 VOL% (42.0-52.0); Hemoglobin 8.2 GM/DL (14.0-18.0); Immature Granulocytes % 0.8 %; Immature Granulocytes Absolute 0.07 #; Lymphocytes # 2.2 10*3/uL (1.4-4.0); Lymphocytes % 25.7 % (21.2-54.2); Mean Corpuscular HGB Conc 33.5 GM/DL (32-36); Mean Corpuscular Hemoglobin 29 PG (27-34); Mean Corpuscular Volume 87.5 FL (87-102); Mean Platelet Volume 10.5 FL (9.6-12.0); Monocytes # 0.8 10*3/uL (0.11-0.8); Monocytes % 9.3 % (1.7-12.7); Neutrophils # 5.3 10*3/uL (1.4-7.4); Platelet Count 122 T/CUMM (130-400); Red Cell Distribution Width 20.1 % (9.3-17.3); White Blood Count 8.4 T/CUMM (4-12)
[2018-03-06] MEDS: AMIODARONE 200 MG TABLET PO SCH (08:45)
[2018-03-06] MEDS: COLCHICINE 0.6 MG TABLET PO SCH (08:45)
[2018-03-06] MEDS: POLYETHYLENE GLYCOL POWDER 17 GM PACK PO SCH ×4 (08:45→20:34)
[2018-03-06] MEDS: ASCORBIC ACID 500 MG TABLET PO SCH ×2 (08:48→20:34)
[2018-03-06] MEDS: PANTOPRAZOLE 40 MG TABLET PO SCH (08:48)
[2018-03-06] MEDS: ALLOPURINOL 300 MG TABLET PO SCH (08:48)
[2018-03-06] MEDS ORDERED: MAGNESIUM SULF RIDER 2 GM in PREMIX 1 EACH IV ONE (09:19)
[2018-03-06] MEDS ORDERED: SODIUM CHLORIDE 0.9% 1,000 ML IV PRN (09:31)
[2018-03-06] MEDS ORDERED: GLUCAGON 1 MG VIAL IM PRN (09:44)
[2018-03-06] MEDS ORDERED: DEXTROSE 50% 25 GM/50 ML VIAL IV PRN (09:44)
[2018-03-06] MEDS: POTASSIUM CHLORIDE 20 MEQ TABLET PO SCH ×4 (10:30→20:34)
[2018-03-06] MEDS: FUROSEMIDE 20 MG/2 ML VIAL IV PRN ×2 (13:32→15:24)
[2018-03-06] MEDS: NOREPINEPHRINE 8 MG in SODIUM CHLORIDE 0.9% 242 ML IV PRN (16:47)
[2018-03-06] MEDS: INSULIN REGULAR 100 UNIT/ML SUBCUT SCH ×2 (18:06→23:14)
[2018-03-06 18:41] LABS: Hematocrit 34.1 VOL% (42.0-52.0); Hemoglobin 11.7 GM/DL (14.0-18.0)
[2018-03-07] MEDS: SODIUM CHLORIDE 0.9% 1,000 ML IV SCH ×3 (00:43→20:19)
[2018-03-07] MEDS: ALUMINUM/MAGNES/SIMETH MAX STR 30 ML UDCUP PO PRN (01:45)
[2018-03-07 03:58] LABS: Hematocrit 31.6 VOL% (42.0-52.0); Hemoglobin 10.7 GM/DL (14.0-18.0)
[2018-03-07 04:31] LABS: Calcium 7.3 MG/DL (8.5-10.1); Osmolality,Calculated 275.5 MOS/KG (273-304); Potassium 2.9 MMOL/L (3.5-5.1)
[2018-03-07] MEDS ORDERED: POTASSIUM CHLORIDE 20 MEQ/15 ML UDCUP PO ONE (05:00)
[2018-03-07] MEDS: INSULIN REGULAR 100 UNIT/ML SUBCUT SCH ×4 (05:14→23:22)
[2018-03-07 09:17] LABS: Potassium 3.6 MMOL/L (3.5-5.1)
[2018-03-07] MEDS: COLCHICINE 0.6 MG TABLET PO SCH (09:42)
[2018-03-07] MEDS: ASCORBIC ACID 500 MG TABLET PO SCH ×2 (09:42→20:23)
[2018-03-07] MEDS: AMIODARONE 200 MG TABLET PO SCH (09:43)
[2018-03-07] MEDS: ALLOPURINOL 300 MG TABLET PO SCH (09:43)
[2018-03-07] MEDS: LANSOPRAZOLE ODT 30 MG TABLET PER TUBE SCH (09:43)
[2018-03-07] MEDS: POLYETHYLENE GLYCOL POWDER 17 GM PACK PO SCH ×2 (09:44→12:45)
[2018-03-07] MEDS: PANTOPRAZOLE 40 MG TABLET PO SCH (09:44)
[2018-03-07 13:35] LABS: Hematocrit 31.4 VOL% (42.0-52.0); Hemoglobin 10.8 GM/DL (14.0-18.0)
[2018-03-07 20:50] LABS: Hematocrit 32.8 VOL% (42.0-52.0); Hemoglobin 11.2 GM/DL (14.0-18.0)
[2018-03-08 04:48] LABS: Basophils # 0.1 10*3/uL (0.0-0.2); Basophils % 0.6 % (0.0-0.8); Eosinophils # 0.3 10*3/uL (0.0-0.87); Eosinophils % 3.9 % (0.00-10.9); Hematocrit 31.5 VOL% (42.0-52.0); Hemoglobin 10.6 GM/DL (14.0-18.0); Immature Granulocytes % 0.9 %; Immature Granulocytes Absolute 0.07 #; Lymphocytes # 1.9 10*3/uL (1.4-4.0); Lymphocytes % 24.7 % (21.2-54.2); Mean Corpuscular HGB Conc 33.7 GM/DL (32-36); Mean Corpuscular Hemoglobin 30 PG (27-34); Mean Corpuscular Volume 88.5 FL (87-102); Mean Platelet Volume 10.3 FL (9.6-12.0); Monocytes # 0.7 10*3/uL (0.11-0.8); Monocytes % 9.3 % (1.7-12.7); Neutrophils # 4.7 10*3/uL (1.4-7.4); Neutrophils % 60.6 % (38.7-73.9); Platelet Count 144 T/CUMM (130-400); Red Blood Count 3.56 MC/CUMM (3.8-5.5); Red Cell Distribution Width 19.1 % (9.3-17.3); White Blood Count 7.8 T/CUMM (4-12)
[2018-03-08 05:11] LABS: Calcium 6.9 MG/DL (8.5-10.1); Osmolality,Calculated 281.1 MOS/KG (273-304); Potassium 3.1 MMOL/L (3.5-5.1)
[2018-03-08] MEDS: INSULIN REGULAR 100 UNIT/ML SUBCUT SCH ×4 (06:19→23:45)
[2018-03-08] MEDS: SODIUM CHLORIDE 0.9% 1,000 ML IV SCH (06:19)
[2018-03-08] MEDS ORDERED: POTASSIUM CHLORIDE 20 MEQ/15 ML UDCUP PO ONE (06:32)
[2018-03-08] MEDS ORDERED: MAGNESIUM SULF RIDER 2 GM in PREMIX 1 EACH IV ONE (09:00)
[2018-03-08] MEDS: ALBUTEROL/IPRATROPIUM 3 ML NEB RESP TX PRN ×2 (09:15→17:35)
[2018-03-08] MEDS: ALLOPURINOL 300 MG TABLET PO SCH (09:16)
[2018-03-08] MEDS: ASCORBIC ACID 500 MG TABLET PO SCH ×2 (09:16→20:22)
[2018-03-08] MEDS: ACETAMINOPHEN 325 MG TABLET PO PRN (09:16)
[2018-03-08] MEDS: LANSOPRAZOLE ODT 30 MG TABLET PER TUBE SCH (09:17)
[2018-03-08] MEDS: AMIODARONE 200 MG TABLET PO SCH (09:17)
[2018-03-08 09:49] LABS: Apearance,Urine Slightly Hazy (Clear); Bacteria,Urine Occasional /HPF (Few); Bilirubin,Urine Negative (Negative); Blood, Urine Negative (Negative); Glucose,Urine (UA) Negative (Negative); Ketones,Urine Negative (Negative); Mucus,Urine Occasional /LPF (Occasional); Nitrite,Urine Negative (Negative); Protein,Urine Negative; RBC,Urine 17 /HPF (0-4); Urine Color Yellow (Yellow); Urine Specific Gravity 1.012 (1.001-1.035); Urine Urobilinogen < 2.0 EU/DL (0.2-1.0); WBC,Urine 15 /HPF (0-6)
[2018-03-08] MEDS: CHOLESTYRAMINE 4 GM PACK PO SCH ×2 (10:53→20:21)
[2018-03-08] MEDS: LEVOFLOXACIN INJ 750 MG in PREMIX 1 EACH IV SCH (10:58)
[2018-03-08] MEDS: DESITIN 4OZ/NYSTATIN 15 GRAM MIXTURE PASTE TOP SCH ×2 (12:01→20:22)
[2018-03-08] MEDS ORDERED: POTASSIUM CHLORIDE 20 MEQ TABLET PO ONE (15:24)
[2018-03-08] MEDS: LACTATED RINGERS 1,000 ML IV SCH (15:41)
[2018-03-08] MEDS: guaiFENesin 200 MG/10 ML UDCUP PO PRN (17:34)
[2018-03-09] MEDS: LACTATED RINGERS 1,000 ML IV SCH ×2 (01:45→11:56)
[2018-03-09 04:27] LABS: Basophils # 0.1 10*3/uL (0.0-0.2); Basophils % 0.7 % (0.0-0.8); Eosinophils # 0.3 10*3/uL (0.0-0.87); Eosinophils % 4.7 % (0.00-10.9); Hematocrit 30.6 VOL% (42.0-52.0); Hemoglobin 10.3 GM/DL (14.0-18.0); Immature Granulocytes % 0.8 %; Immature Granulocytes Absolute 0.06 #; Lymphocytes # 1.9 10*3/uL (1.4-4.0); Lymphocytes % 25.6 % (21.2-54.2); Mean Corpuscular HGB Conc 33.7 GM/DL (32-36); Mean Corpuscular Hemoglobin 29 PG (27-34); Mean Corpuscular Volume 87.4 FL (87-102); Mean Platelet Volume 9.6 FL (9.6-12.0); Monocytes # 0.9 10*3/uL (0.11-0.8); Monocytes % 12.2 % (1.7-12.7); Neutrophils # 4.1 10*3/uL (1.4-7.4); Platelet Count 152 T/CUMM (130-400); Red Cell Distribution Width 19.3 % (9.3-17.3); White Blood Count 7.3 T/CUMM (4-12)
[2018-03-09 04:43] LABS: Calcium 7.3 MG/DL (8.5-10.1); Potassium 3.7 MMOL/L (3.5-5.1)
[2018-03-09] MEDS: INSULIN REGULAR 100 UNIT/ML SUBCUT SCH ×3 (05:29→18:09)
[2018-03-09] MEDS ORDERED: PANTOPRAZOLE 40 MG TABLET PO SCH (09:00)
[2018-03-09] MEDS: CHOLESTYRAMINE 4 GM PACK PO SCH ×2 (09:12→20:40)
[2018-03-09] MEDS: ASCORBIC ACID 500 MG TABLET PO SCH ×2 (09:12→20:39)
[2018-03-09] MEDS: ALLOPURINOL 300 MG TABLET PO SCH (09:12)
[2018-03-09] MEDS: AMIODARONE 200 MG TABLET PO SCH (09:12)
[2018-03-09] MEDS: DESITIN 4OZ/NYSTATIN 15 GRAM MIXTURE PASTE TOP SCH ×2 (09:18→20:40)
[2018-03-09] MEDS: LEVOFLOXACIN INJ 750 MG in PREMIX 1 EACH IV SCH (10:07)
[2018-03-09] MEDS ORDERED: MAGNESIUM SULF RIDER 2 GM in PREMIX 1 EACH IV ONE (13:12)
[2018-03-09] MEDS: MIRTAZAPINE 15 MG TABLET PO SCH (20:40)
[2018-03-10] MEDS: INSULIN REGULAR 100 UNIT/ML SUBCUT SCH ×4 (02:05→18:21)
[2018-03-10] MEDS: ALUMINUM/MAGNES/SIMETH MAX STR 30 ML UDCUP PO PRN (04:43)
[2018-03-10 05:37] LABS: Prealbumin 7.3 MG/DL (20-40)
[2018-03-10 05:59] LABS: Basophils # 0.1 10*3/uL (0.0-0.2); Basophils % 0.8 % (0.0-0.8); Eosinophils # 0.4 10*3/uL (0.0-0.87); Eosinophils % 4.1 % (0.00-10.9); Hemoglobin 10.7 GM/DL (14.0-18.0); Immature Granulocytes % 0.8 %; Immature Granulocytes Absolute 0.07 #; Lymphocytes # 2.5 10*3/uL (1.4-4.0); Lymphocytes % 29.1 % (21.2-54.2); Mean Corpuscular HGB Conc 33.4 GM/DL (32-36); Mean Corpuscular Hemoglobin 30 PG (27-34); Mean Corpuscular Volume 88.4 FL (87-102); Monocytes % 11.6 % (1.7-12.7); Neutrophils # 4.6 10*3/uL (1.4-7.4); Neutrophils % 53.6 % (38.7-73.9); Platelet Count 181 T/CUMM (130-400); Red Blood Count 3.62 MC/CUMM (3.8-5.5); Red Cell Distribution Width 18.6 % (9.3-17.3); White Blood Count 8.6 T/CUMM (4-12)
[2018-03-10] MEDS ORDERED: SODIUM CHLORIDE 0.9% 1,000 ML IV ONE (08:21)
[2018-03-10] MEDS ORDERED: PHENYLEPHRINE DRIP 40 MG/250 ML PREMIX IV PRN (08:25)
[2018-03-10] MEDS ORDERED: SODIUM CHLORIDE 0.9% 1,000 ML IV PRN (08:29)
[2018-03-10] MEDS ORDERED: NOREPINEPHRINE 4 MG/4 ML VIAL IV ONE (08:32)
[2018-03-10 08:52] LABS: Hematocrit 30.1 VOL% (42.0-52.0)
[2018-03-10 08:57] LABS: INR 1.1
[2018-03-10] MEDS: NOREPINEPHRINE 8 MG in SODIUM CHLORIDE 0.9% 242 ML IV PRN (08:59)
[2018-03-10] MEDS ORDERED: VANCOMYCIN INJ 1,250 MG in SODIUM CHLORIDE 0.9% 250 ML IV SCH (09:00)
[2018-03-10 09:06] LABS: Calcium 7.1 MG/DL (8.5-10.1)
[2018-03-10] MEDS: POLYETHYLENE GLYCOL POWDER 17 GM PACK PO SCH (09:24)
[2018-03-10] MEDS ORDERED: SODIUM PHOSPHATE ENEMA 133 ML BOTTLE RECTAL ONE ×2 (09:37→12:00)
[2018-03-10] MEDS ORDERED: ETOMIDATE 20 MG/10 ML VIAL IV ONE (10:00)
[2018-03-10] MEDS ORDERED: PROPOFOL 200 MG/20 ML VIAL IV ONE (10:00)
[2018-03-10] MEDS: COLCHICINE 0.6 MG TABLET PO SCH (10:13)
[2018-03-10] MEDS: SERTRALINE 50 MG TABLET PO SCH (10:13)
[2018-03-10] MEDS: AMIODARONE 200 MG TABLET PO SCH (10:13)
[2018-03-10] MEDS: ALLOPURINOL 300 MG TABLET PO SCH (10:14)
[2018-03-10] MEDS: ASCORBIC ACID 500 MG TABLET PO SCH ×2 (10:14→20:44)
[2018-03-10] MEDS: CHOLESTYRAMINE 4 GM PACK PO SCH ×2 (10:22→20:43)
[2018-03-10] MEDS: PIPERACILLIN/TAZOBACTAM 3,375 MG in SODIUM CHLORIDE 0.9% 100 ML IV SCH ×2 (10:26→16:58)
[2018-03-10] MEDS: DESITIN 4OZ/NYSTATIN 15 GRAM MIXTURE PASTE TOP SCH ×2 (10:29→20:43)
[2018-03-10] MEDS: LEVOFLOXACIN INJ 750 MG in PREMIX 1 EACH IV SCH (11:28)
[2018-03-10] MEDS ORDERED: POLYETHYLENE GLYCOL 3350/ELECTROLYTES 4,000 ML BOTTLE PO ONE (18:00)
[2018-03-10 18:13] LABS: Hemoglobin 12.1 GM/DL (14.0-18.0)
[2018-03-10] MEDS: MIRTAZAPINE 15 MG TABLET PO SCH (20:43)
[2018-03-11] MEDS: INSULIN REGULAR 100 UNIT/ML SUBCUT SCH ×5 (00:06→23:59)
[2018-03-11] MEDS: PIPERACILLIN/TAZOBACTAM 3,375 MG in SODIUM CHLORIDE 0.9% 100 ML IV SCH ×3 (03:30→18:06)
[2018-03-11 03:59] LABS: Basophils # 0.1 10*3/uL (0.0-0.2); Basophils % 0.5 % (0.0-0.8); Eosinophils # 0.3 10*3/uL (0.0-0.87); Eosinophils % 2.4 % (0.00-10.9); Hematocrit 34.3 VOL% (42.0-52.0); Immature Granulocytes % 0.5 %; Immature Granulocytes Absolute 0.06 #; Lymphocytes # 1.8 10*3/uL (1.4-4.0); Lymphocytes % 15.3 % (21.2-54.2); Mean Corpuscular Hemoglobin 30 PG (27-34); Mean Corpuscular Volume 84.7 FL (87-102); Monocytes # 0.9 10*3/uL (0.11-0.8); Monocytes % 7.2 % (1.7-12.7); Neutrophils # 8.9 10*3/uL (1.4-7.4); Neutrophils % 74.1 % (38.7-73.9); Platelet Count 136 T/CUMM (130-400); Red Blood Count 4.05 MC/CUMM (3.8-5.5); Red Cell Distribution Width 18.2 % (9.3-17.3)
[2018-03-11 04:20] LABS: Calcium 7.9 MG/DL (8.5-10.1); Osmolality,Calculated 277.4 MOS/KG (273-304); Potassium 3.9 MMOL/L (3.5-5.1)
[2018-03-11 08:42] LABS: Hematocrit 33.4 VOL% (42.0-52.0); Hemoglobin 11.2 GM/DL (14.0-18.0)
[2018-03-11] MEDS: DESITIN 4OZ/NYSTATIN 15 GRAM MIXTURE PASTE TOP SCH ×2 (11:29→22:07)
[2018-03-11] MEDS ORDERED: SODIUM PHOSPHATE ENEMA 133 ML BOTTLE RECTAL ONE (11:30)
[2018-03-11] MEDS: LEVOFLOXACIN INJ 750 MG in PREMIX 1 EACH IV SCH (11:45)
[2018-03-11] MEDS: ASCORBIC ACID 500 MG TABLET PO SCH ×2 (11:46→22:07)
[2018-03-11] MEDS: ALLOPURINOL 300 MG TABLET PO SCH (11:46)
[2018-03-11] MEDS: AMIODARONE 200 MG TABLET PO SCH (11:46)
[2018-03-11] MEDS: CHOLESTYRAMINE 4 GM PACK PO SCH ×2 (11:47→22:07)
[2018-03-11] MEDS: COLCHICINE 0.6 MG TABLET PO SCH (11:47)
[2018-03-11] MEDS: SERTRALINE 50 MG TABLET PO SCH (11:47)
[2018-03-11] MEDS: POLYETHYLENE GLYCOL POWDER 17 GM PACK PO SCH (11:48)
[2018-03-11] MEDS ORDERED: ETOMIDATE 20 MG/10 ML VIAL IV ONE (13:30)
[2018-03-11] MEDS ORDERED: LIDOCAINE 100 MG/5 ML SYRINGE ONE (13:30)
[2018-03-11] MEDS: MIRTAZAPINE 15 MG TABLET PO SCH (22:07)
[2018-03-12] MEDS: PIPERACILLIN/TAZOBACTAM 3,375 MG in SODIUM CHLORIDE 0.9% 100 ML IV SCH ×3 (01:20→23:45)
[2018-03-12 03:47] LABS: Basophils # 0.1 10*3/uL (0.0-0.2); Basophils % 0.8 % (0.0-0.8); Eosinophils # 0.4 10*3/uL (0.0-0.87); Eosinophils % 4.5 % (0.00-10.9); Hematocrit 32.3 VOL% (42.0-52.0); Hemoglobin 10.7 GM/DL (14.0-18.0); Immature Granulocytes % 0.5 %; Immature Granulocytes Absolute 0.05 #; Lymphocytes # 1.9 10*3/uL (1.4-4.0); Lymphocytes % 19.9 % (21.2-54.2); Mean Corpuscular HGB Conc 33.1 GM/DL (32-36); Mean Corpuscular Hemoglobin 30 PG (27-34); Mean Platelet Volume 9.6 FL (9.6-12.0); Monocytes # 0.9 10*3/uL (0.11-0.8); Monocytes % 9.3 % (1.7-12.7); Neutrophils # 6.2 10*3/uL (1.4-7.4); Platelet Count 141 T/CUMM (130-400); Red Blood Count 3.63 MC/CUMM (3.8-5.5); Red Cell Distribution Width 17.8 % (9.3-17.3); White Blood Count 9.5 T/CUMM (4-12)
[2018-03-12 04:12] LABS: Calcium 7.4 MG/DL (8.5-10.1); Osmolality,Calculated 276.7 MOS/KG (273-304); Potassium 3.6 MMOL/L (3.5-5.1)
[2018-03-12] MEDS: INSULIN REGULAR 100 UNIT/ML SUBCUT SCH ×2 (06:27→16:40)
[2018-03-12] MEDS: ASCORBIC ACID 500 MG TABLET PO SCH ×2 (09:37→21:10)
[2018-03-12] MEDS: AMIODARONE 200 MG TABLET PO SCH (09:37)
[2018-03-12] MEDS: SERTRALINE 50 MG TABLET PO SCH (09:37)
[2018-03-12] MEDS: COLCHICINE 0.6 MG TABLET PO SCH (09:37)
[2018-03-12] MEDS: ALLOPURINOL 300 MG TABLET PO SCH (09:37)
[2018-03-12] MEDS: CHOLESTYRAMINE 4 GM PACK PO SCH ×2 (09:37→21:10)
[2018-03-12] MEDS: LEVOFLOXACIN INJ 750 MG in PREMIX 1 EACH IV SCH (09:38)
[2018-03-12] MEDS: POLYETHYLENE GLYCOL POWDER 17 GM PACK PO SCH (09:38)
[2018-03-12] MEDS: DESITIN 4OZ/NYSTATIN 15 GRAM MIXTURE PASTE TOP SCH ×2 (10:06→21:10)
[2018-03-12] MEDS: ONDANSETRON 4 MG/2 ML VIAL IV PRN (14:46)
[2018-03-12] MEDS: NOREPINEPHRINE 8 MG in SODIUM CHLORIDE 0.9% 242 ML IV PRN (20:04)
[2018-03-12] MEDS: MIRTAZAPINE 15 MG TABLET PO SCH (21:10)
[2018-03-13 05:07] LABS: Basophils # 0.1 10*3/uL (0.0-0.2); Basophils % 0.9 % (0.0-0.8); Eosinophils # 0.4 10*3/uL (0.0-0.87); Eosinophils % 4.6 % (0.00-10.9); Hematocrit 34.6 VOL% (42.0-52.0); Hemoglobin 11.1 GM/DL (14.0-18.0); Immature Granulocytes % 0.6 %; Immature Granulocytes Absolute 0.05 #; Mean Corpuscular HGB Conc 32.1 GM/DL (32-36); Mean Corpuscular Hemoglobin 29 PG (27-34); Mean Corpuscular Volume 89.4 FL (87-102); Monocytes # 0.9 10*3/uL (0.11-0.8); Monocytes % 11.1 % (1.7-12.7); Neutrophils # 4.4 10*3/uL (1.4-7.4); Neutrophils % 56.8 % (38.7-73.9); Platelet Count 168 T/CUMM (130-400); Red Blood Count 3.87 MC/CUMM (3.8-5.5); Red Cell Distribution Width 17.2 % (9.3-17.3); White Blood Count 7.8 T/CUMM (4-12)
[2018-03-13 05:36] LABS: Calcium 7.5 MG/DL (8.5-10.1); Osmolality,Calculated 283.3 MOS/KG (273-304); Potassium 3.7 MMOL/L (3.5-5.1)
[2018-03-13] MEDS: PIPERACILLIN/TAZOBACTAM 3,375 MG in SODIUM CHLORIDE 0.9% 100 ML IV SCH ×3 (06:20→22:34)
[2018-03-13] MEDS: INSULIN REGULAR 100 UNIT/ML SUBCUT SCH ×2 (08:45→17:13)
[2018-03-13] MEDS: SERTRALINE 50 MG TABLET PO SCH (09:05)
[2018-03-13] MEDS: ASCORBIC ACID 500 MG TABLET PO SCH ×2 (09:05→20:13)
[2018-03-13] MEDS: DESITIN 4OZ/NYSTATIN 15 GRAM MIXTURE PASTE TOP SCH ×2 (09:06→22:34)
[2018-03-13] MEDS: AMIODARONE 200 MG TABLET PO SCH (09:06)
[2018-03-13] MEDS: POLYETHYLENE GLYCOL POWDER 17 GM PACK PO SCH (09:06)
[2018-03-13] MEDS: CHOLESTYRAMINE 4 GM PACK PO SCH ×2 (09:06→20:14)
[2018-03-13] MEDS: COLCHICINE 0.6 MG TABLET PO SCH (09:06)
[2018-03-13] MEDS: ALLOPURINOL 300 MG TABLET PO SCH (09:07)
[2018-03-13] MEDS: LEVOFLOXACIN INJ 750 MG in PREMIX 1 EACH IV SCH (09:32)
[2018-03-13] MEDS ORDERED: HYDROCORTISONE 100 MG VIAL IV ONE (09:40)
[2018-03-13] MEDS: ALBUMIN 25% 25 GM in PREMIX 1 EACH IV SCH ×2 (12:12→20:22)
[2018-03-13] MEDS: HYDROCORTISONE 100 MG VIAL IV SCH (17:14)
[2018-03-13 18:18] LABS: Hematocrit 32.5 VOL% (42.0-52.0); Hemoglobin 10.7 GM/DL (14.0-18.0)
[2018-03-13] MEDS: MIRTAZAPINE 15 MG TABLET PO SCH (20:14)
[2018-03-14 00:44] LABS: Hematocrit 28.7 VOL% (42.0-52.0); Hemoglobin 9.5 GM/DL (14.0-18.0)
[2018-03-14] MEDS: HYDROCORTISONE 100 MG VIAL IV SCH ×4 (01:04→23:38)
[2018-03-14] MEDS: ALBUMIN 25% 25 GM in PREMIX 1 EACH IV SCH ×3 (04:25→20:34)
[2018-03-14 04:45] LABS: Basophils % 0.1 % (0.0-0.8); Hematocrit 29.3 VOL% (42.0-52.0); Hemoglobin 9.3 GM/DL (14.0-18.0); Immature Granulocytes % 0.9 %; Immature Granulocytes Absolute 0.07 #; Lymphocytes # 1.1 10*3/uL (1.4-4.0); Lymphocytes % 13.4 % (21.2-54.2); Mean Corpuscular HGB Conc 31.7 GM/DL (32-36); Mean Corpuscular Hemoglobin 29 PG (27-34); Mean Corpuscular Volume 90.4 FL (87-102); Mean Platelet Volume 10.4 FL (9.6-12.0); Monocytes # 0.1 10*3/uL (0.11-0.8); Monocytes % 1.4 % (1.7-12.7); Neutrophils # 6.7 10*3/uL (1.4-7.4); Neutrophils % 84.2 % (38.7-73.9); Platelet Count 153 T/CUMM (130-400); Red Blood Count 3.24 MC/CUMM (3.8-5.5); Red Cell Distribution Width 16.6 % (9.3-17.3); White Blood Count 7.9 T/CUMM (4-12)
[2018-03-14 05:10] LABS: Calcium 7.9 MG/DL (8.5-10.1); Osmolality,Calculated 282.3 MOS/KG (273-304); Potassium 3.7 MMOL/L (3.5-5.1)
[2018-03-14 05:15] LABS: Prealbumin 10.6 MG/DL (20-40)
[2018-03-14] MEDS: PIPERACILLIN/TAZOBACTAM 3,375 MG in SODIUM CHLORIDE 0.9% 100 ML IV SCH ×3 (06:31→22:30)
[2018-03-14] MEDS ORDERED: MAGNESIUM SULF RIDER 4 GM in PREMIX 1 EACH IV ONE (07:53)
[2018-03-14] MEDS: COLCHICINE 0.6 MG TABLET PO SCH (08:56)
[2018-03-14] MEDS: AMIODARONE 200 MG TABLET PO SCH (08:56)
[2018-03-14] MEDS: ALLOPURINOL 300 MG TABLET PO SCH (08:56)
[2018-03-14] MEDS: SERTRALINE 50 MG TABLET PO SCH (08:57)
[2018-03-14] MEDS: DESITIN 4OZ/NYSTATIN 15 GRAM MIXTURE PASTE TOP SCH ×2 (09:04→20:42)
[2018-03-14] MEDS: INSULIN REGULAR 100 UNIT/ML SUBCUT SCH ×2 (09:14→16:59)
[2018-03-14] MEDS: LEVOFLOXACIN INJ 750 MG in PREMIX 1 EACH IV SCH (10:42)
[2018-03-14] MEDS ORDERED: CHOLESTYRAMINE 4 GM PACK PO PRN (12:07)
[2018-03-14] MEDS ORDERED: POLYETHYLENE GLYCOL POWDER 17 GM PACK PO PRN (12:07)
[2018-03-14] MEDS: CHOLESTYRAMINE 4 GM PACK PO SCH (12:18)
[2018-03-14] MEDS: POLYETHYLENE GLYCOL POWDER 17 GM PACK PO SCH (12:18)
[2018-03-14] MEDS: ASCORBIC ACID 500 MG TABLET PO SCH ×2 (12:25→20:34)
[2018-03-14] MEDS: PANTOPRAZOLE 40 MG TABLET PO SCH (12:25)
[2018-03-14] MEDS ORDERED: MORPHINE 4 MG/1 ML VIAL ONE (13:05)
[2018-03-14] MEDS ORDERED: NITROGLYCERIN SL 0.4 MG TABLET SL ONE (13:05)
[2018-03-14] MEDS ORDERED: MORPHINE 4 MG/1 ML VIAL IV ONE (13:06)
[2018-03-14] MEDS: NITROGLYCERIN SL 0.4 MG TABLET SL PRN (13:07)
[2018-03-14] MEDS: ONDANSETRON 4 MG/2 ML VIAL IV PRN (14:01)
[2018-03-14] MEDS: ALUMINUM/MAGNES/SIMETH MAX STR 30 ML UDCUP PO PRN (14:03)
[2018-03-14] MEDS: ACETAMINOPHEN 325 MG TABLET PO PRN (16:26)
[2018-03-14] MEDS ORDERED: MORPHINE 4 MG/1 ML VIAL IV PRN (16:47)
[2018-03-14] MEDS: NITROGLYCERIN 2% OINT 1 INCH/GM PACK TOP SCH ×2 (17:23→23:38)
[2018-03-14] MEDS: SIMETHICONE CHEW 125 MG TABLET PO SCH ×2 (18:56→20:34)
[2018-03-14] MEDS: RANOLAZINE 500 MG TABLET PO SCH ×2 (18:56→20:34)
[2018-03-14] MEDS ORDERED: MAGNESIUM SULF RIDER 4 GM in PREMIX 1 EACH IV PRN (19:23)
[2018-03-14] MEDS: MIRTAZAPINE 15 MG TABLET PO SCH (20:34)
[2018-03-14] MEDS: MAGNESIUM SULF RIDER 2 GM in PREMIX 1 EACH IV PRN (20:35)
[2018-03-15 03:35] LABS: Hematocrit 25.5 VOL% (42.0-52.0); Hemoglobin 8.3 GM/DL (14.0-18.0); Immature Granulocytes % 0.6 %; Immature Granulocytes Absolute 0.05 #; Lymphocytes # 0.9 10*3/uL (1.4-4.0); Lymphocytes % 10.8 % (21.2-54.2); Mean Corpuscular HGB Conc 32.5 GM/DL (32-36); Mean Corpuscular Hemoglobin 30 PG (27-34); Mean Corpuscular Volume 90.7 FL (87-102); Mean Platelet Volume 9.9 FL (9.6-12.0); Monocytes # 0.4 10*3/uL (0.11-0.8); Monocytes % 4.8 % (1.7-12.7); Neutrophils # 6.7 10*3/uL (1.4-7.4); Neutrophils % 83.8 % (38.7-73.9); Platelet Count 135 T/CUMM (130-400); Red Blood Count 2.81 MC/CUMM (3.8-5.5); Red Cell Distribution Width 16.9 % (9.3-17.3)
[2018-03-15] MEDS: ALBUMIN 25% 25 GM in PREMIX 1 EACH IV SCH ×3 (03:48→20:14)
[2018-03-15 04:00] LABS: Calcium 7.6 MG/DL (8.5-10.1); Osmolality,Calculated 283.7 MOS/KG (273-304); Potassium 3.6 MMOL/L (3.5-5.1)
[2018-03-15] MEDS: NITROGLYCERIN 2% OINT 1 INCH/GM PACK TOP SCH ×4 (05:39→23:58)
[2018-03-15] MEDS: NOREPINEPHRINE 8 MG in SODIUM CHLORIDE 0.9% 242 ML IV PRN (05:39)
[2018-03-15] MEDS: PIPERACILLIN/TAZOBACTAM 3,375 MG in SODIUM CHLORIDE 0.9% 100 ML IV SCH ×3 (06:18→22:36)
[2018-03-15] MEDS: INSULIN REGULAR 100 UNIT/ML SUBCUT SCH ×2 (08:24→17:41)
[2018-03-15] MEDS: AMIODARONE 200 MG TABLET PO SCH (08:34)
[2018-03-15] MEDS: COLCHICINE 0.6 MG TABLET PO SCH (08:35)
[2018-03-15] MEDS: SERTRALINE 50 MG TABLET PO SCH (08:35)
[2018-03-15] MEDS: ALLOPURINOL 300 MG TABLET PO SCH (08:36)
[2018-03-15] MEDS: RANOLAZINE 500 MG TABLET PO SCH ×2 (08:36→20:15)
[2018-03-15] MEDS: PANTOPRAZOLE 40 MG TABLET PO SCH (08:36)
[2018-03-15] MEDS: ASCORBIC ACID 500 MG TABLET PO SCH ×2 (08:37→20:15)
[2018-03-15] MEDS: SIMETHICONE CHEW 125 MG TABLET PO SCH ×4 (08:38→20:14)
[2018-03-15] MEDS: HYDROCORTISONE 100 MG VIAL IV SCH ×3 (08:39→23:57)
[2018-03-15] MEDS: DESITIN 4OZ/NYSTATIN 15 GRAM MIXTURE PASTE TOP SCH ×2 (08:41→20:15)
[2018-03-15] MEDS: LEVOFLOXACIN INJ 750 MG in PREMIX 1 EACH IV SCH (10:38)
[2018-03-15] MEDS: MORPHINE 4 MG/1 ML VIAL IV PRN (15:15)
[2018-03-15] MEDS ORDERED: FUROSEMIDE 40 MG/4 ML VIAL IV ONE (15:19)
[2018-03-15] MEDS ORDERED: FUROSEMIDE 100 MG/10 ML VIAL ONE (15:21)
[2018-03-15] MEDS: NITROGLYCERIN SL 0.4 MG TABLET SL PRN (15:33)
[2018-03-15 17:44] LABS: Hematocrit 30.5 VOL% (42.0-52.0)
[2018-03-15] MEDS: MIRTAZAPINE 15 MG TABLET PO SCH (20:15)
[2018-03-16] MEDS: ALBUMIN 25% 25 GM in PREMIX 1 EACH IV SCH ×3 (04:04→20:52)
[2018-03-16 04:16] LABS: Basophils % 0.1 % (0.0-0.8); Hematocrit 31.5 VOL% (42.0-52.0); Hemoglobin 10.3 GM/DL (14.0-18.0); Immature Granulocytes % 0.6 %; Immature Granulocytes Absolute 0.06 #; Lymphocytes # 0.9 10*3/uL (1.4-4.0); Lymphocytes % 9.3 % (21.2-54.2); Mean Corpuscular HGB Conc 32.7 GM/DL (32-36); Mean Corpuscular Hemoglobin 28 PG (27-34); Mean Corpuscular Volume 86.8 FL (87-102); Monocytes # 0.6 10*3/uL (0.11-0.8); Monocytes % 6.3 % (1.7-12.7); Neutrophils # 7.9 10*3/uL (1.4-7.4); Neutrophils % 83.7 % (38.7-73.9); Platelet Count 124 T/CUMM (130-400); Red Blood Count 3.63 MC/CUMM (3.8-5.5); Red Cell Distribution Width 17.6 % (9.3-17.3); White Blood Count 9.4 T/CUMM (4-12)
[2018-03-16 04:50] LABS: Calcium 8.1 MG/DL (8.5-10.1); Osmolality,Calculated 290.3 MOS/KG (273-304); Potassium 2.6 MMOL/L (3.5-5.1)
[2018-03-16] MEDS ORDERED: POTASSIUM CHLORIDE INJ 50 MEQ in SODIUM CHLORIDE 0.9% 475 ML IV ONE (05:30)
[2018-03-16] MEDS: NITROGLYCERIN 2% OINT 1 INCH/GM PACK TOP SCH ×4 (05:39→23:30)
[2018-03-16] MEDS: PIPERACILLIN/TAZOBACTAM 3,375 MG in SODIUM CHLORIDE 0.9% 100 ML IV SCH ×3 (06:06→23:30)
[2018-03-16] MEDS: INSULIN REGULAR 100 UNIT/ML SUBCUT SCH ×2 (08:04→16:33)
[2018-03-16] MEDS: HYDROCORTISONE 100 MG VIAL IV SCH ×3 (08:05→23:30)
[2018-03-16] MEDS: FUROSEMIDE 40 MG/4 ML VIAL IV SCH (08:50)
[2018-03-16] MEDS: PANTOPRAZOLE 40 MG TABLET PO SCH (08:53)
[2018-03-16] MEDS: SERTRALINE 50 MG TABLET PO SCH (08:53)
[2018-03-16] MEDS: AMIODARONE 200 MG TABLET PO SCH (08:53)
[2018-03-16] MEDS: ASCORBIC ACID 500 MG TABLET PO SCH ×2 (08:53→20:52)
[2018-03-16] MEDS: SIMETHICONE CHEW 125 MG TABLET PO SCH ×4 (08:53→20:53)
[2018-03-16] MEDS: guaiFENesin 200 MG/10 ML UDCUP PO PRN (08:53)
[2018-03-16] MEDS: RANOLAZINE 500 MG TABLET PO SCH ×2 (08:54→20:52)
[2018-03-16] MEDS: COLCHICINE 0.6 MG TABLET PO SCH (08:54)
[2018-03-16] MEDS: CARVEDILOL 3.125 MG TABLET PO SCH ×2 (08:54→20:52)
[2018-03-16] MEDS: ALLOPURINOL 300 MG TABLET PO SCH (08:54)
[2018-03-16] MEDS: DESITIN 4OZ/NYSTATIN 15 GRAM MIXTURE PASTE TOP SCH ×2 (08:55→22:12)
[2018-03-16] MEDS: POTASSIUM CHLORIDE 20 MEQ TABLET PO SCH ×3 (09:11→16:44)
[2018-03-16] MEDS: LEVOFLOXACIN INJ 750 MG in PREMIX 1 EACH IV SCH (09:52)
[2018-03-16] MEDS: POTASSIUM CHLORIDE RIDER 20 MEQ in PREMIX 1 EACH IV PRN ×2 (15:13→16:49)
[2018-03-16] MEDS: POTASSIUM CHLORIDE RIDER 10 MEQ in PREMIX 1 EACH IV PRN (19:20)
[2018-03-16] MEDS: MIRTAZAPINE 15 MG TABLET PO SCH (20:52)
[2018-03-16] MEDS: ALBUTEROL/IPRATROPIUM 3 ML NEB RESP TX PRN (22:28)
[2018-03-17] MEDS: ALBUTEROL/IPRATROPIUM 3 ML NEB RESP TX PRN (03:04)
[2018-03-17] MEDS: ALBUMIN 25% 25 GM in PREMIX 1 EACH IV SCH ×3 (03:15→20:02)
[2018-03-17] MEDS ORDERED: FUROSEMIDE 40 MG/4 ML VIAL IV ONE (03:30)
[2018-03-17 04:22] LABS: Calcium 8.2 MG/DL (8.5-10.1); Osmolality,Calculated 291.1 MOS/KG (273-304); Potassium 3.1 MMOL/L (3.5-5.1)
[2018-03-17 04:28] LABS: Prealbumin 17.2 MG/DL (20-40)
[2018-03-17 04:44] LABS: Basophils % 0.1 % (0.0-0.8); Hematocrit 32.1 VOL% (42.0-52.0); Hemoglobin 10.6 GM/DL (14.0-18.0); Immature Granulocytes % 0.8 %; Immature Granulocytes Absolute 0.09 #; Lymphocytes # 1.4 10*3/uL (1.4-4.0); Lymphocytes % 12.5 % (21.2-54.2); Mean Corpuscular Hemoglobin 28 PG (27-34); Mean Corpuscular Volume 84.9 FL (87-102); Mean Platelet Volume 10.9 FL (9.6-12.0); Monocytes # 0.8 10*3/uL (0.11-0.8); Neutrophils # 8.9 10*3/uL (1.4-7.4); Neutrophils % 79.6 % (38.7-73.9); Platelet Count 150 T/CUMM (130-400); Red Blood Count 3.78 MC/CUMM (3.8-5.5); Red Cell Distribution Width 17.9 % (9.3-17.3); White Blood Count 11.2 T/CUMM (4-12)
[2018-03-17] MEDS: PIPERACILLIN/TAZOBACTAM 3,375 MG in SODIUM CHLORIDE 0.9% 100 ML IV SCH ×3 (06:22→23:27)
[2018-03-17] MEDS: NITROGLYCERIN 2% OINT 1 INCH/GM PACK TOP SCH ×4 (06:22→23:27)
[2018-03-17] MEDS: INSULIN REGULAR 100 UNIT/ML SUBCUT SCH ×2 (07:40→17:16)
[2018-03-17] MEDS: HYDROCORTISONE 100 MG VIAL IV SCH ×3 (08:15→23:30)
[2018-03-17] MEDS: FUROSEMIDE 40 MG/4 ML VIAL IV SCH (08:21)
[2018-03-17] MEDS ORDERED: POTASSIUM CHLORIDE RIDER 20 MEQ in PREMIX 1 EACH IV ONE (08:30)
[2018-03-17] MEDS: LISINOPRIL 2.5 MG TABLET PO SCH ×2 (09:26→20:02)
[2018-03-17] MEDS: COLCHICINE 0.6 MG TABLET PO SCH (09:26)
[2018-03-17] MEDS: SERTRALINE 50 MG TABLET PO SCH (09:26)
[2018-03-17] MEDS: ASCORBIC ACID 500 MG TABLET PO SCH ×2 (09:26→20:03)
[2018-03-17] MEDS: PANTOPRAZOLE 40 MG TABLET PO SCH (09:27)
[2018-03-17] MEDS: AMIODARONE 200 MG TABLET PO SCH (09:27)
[2018-03-17] MEDS: CARVEDILOL 6.25 MG TABLET PO SCH ×2 (09:27→20:02)
[2018-03-17] MEDS: SIMETHICONE CHEW 125 MG TABLET PO SCH ×4 (09:27→20:02)
[2018-03-17] MEDS: RANOLAZINE 500 MG TABLET PO SCH ×2 (09:27→20:02)
[2018-03-17] MEDS: ALLOPURINOL 300 MG TABLET PO SCH (09:27)
[2018-03-17] MEDS: DESITIN 4OZ/NYSTATIN 15 GRAM MIXTURE PASTE TOP SCH ×2 (10:02→20:03)
[2018-03-17] MEDS: LEVOFLOXACIN INJ 750 MG in PREMIX 1 EACH IV SCH (10:09)
[2018-03-17] MEDS ORDERED: POTASSIUM PHOSPHATE 40 MMOL in SODIUM CHLORIDE 0.9% 250 ML IV ONE (10:30)
[2018-03-17] MEDS: POTASSIUM CHLORIDE RIDER 20 MEQ in PREMIX 1 EACH IV PRN (10:49)
[2018-03-17] MEDS ORDERED: POTASSIUM CHLORIDE INJ 50 MEQ in SODIUM CHLORIDE 0.9% 500 ML IV PRN (19:24)
[2018-03-17] MEDS: MIRTAZAPINE 15 MG TABLET PO SCH (20:02)
[2018-03-17] MEDS: MORPHINE 4 MG/1 ML VIAL IV PRN (20:03)
[2018-03-18] MEDS: ALBUMIN 25% 25 GM in PREMIX 1 EACH IV SCH ×3 (04:05→20:18)
[2018-03-18 04:16] LABS: Basophils % 0.1 % (0.0-0.8); Hematocrit 29.3 VOL% (42.0-52.0); Hemoglobin 9.7 GM/DL (14.0-18.0); Immature Granulocytes % 1.1 %; Immature Granulocytes Absolute 0.08 #; Lymphocytes # 0.7 10*3/uL (1.4-4.0); Lymphocytes % 9.5 % (21.2-54.2); Mean Corpuscular HGB Conc 33.1 GM/DL (32-36); Mean Corpuscular Hemoglobin 29 PG (27-34); Mean Corpuscular Volume 87.7 FL (87-102); Mean Platelet Volume 10.8 FL (9.6-12.0); Monocytes # 0.4 10*3/uL (0.11-0.8); Monocytes % 5.2 % (1.7-12.7); Neutrophils # 5.9 10*3/uL (1.4-7.4); Neutrophils % 84.1 % (38.7-73.9); Platelet Count 130 T/CUMM (130-400); Red Blood Count 3.34 MC/CUMM (3.8-5.5); Red Cell Distribution Width 17.8 % (9.3-17.3); White Blood Count 7.1 T/CUMM (4-12)
[2018-03-18 04:18] LABS: Calcium 8.3 MG/DL (8.5-10.1); Osmolality,Calculated 291.3 MOS/KG (273-304); Potassium 3.3 MMOL/L (3.5-5.1)
[2018-03-18] MEDS: MAGNESIUM SULF RIDER 2 GM in PREMIX 1 EACH IV PRN (05:53)
[2018-03-18] MEDS: NITROGLYCERIN 2% OINT 1 INCH/GM PACK TOP SCH (05:53)
[2018-03-18] MEDS: POTASSIUM CHLORIDE RIDER 20 MEQ in PREMIX 1 EACH IV PRN ×4 (05:54→20:46)
[2018-03-18] MEDS: PIPERACILLIN/TAZOBACTAM 3,375 MG in SODIUM CHLORIDE 0.9% 100 ML IV SCH ×3 (06:01→22:06)
[2018-03-18] MEDS: INSULIN REGULAR 100 UNIT/ML SUBCUT SCH ×2 (07:42→18:06)
[2018-03-18] MEDS: CARVEDILOL 6.25 MG TABLET PO SCH ×2 (08:08→20:18)
[2018-03-18] MEDS: SERTRALINE 50 MG TABLET PO SCH (08:08)
[2018-03-18] MEDS: PANTOPRAZOLE 40 MG TABLET PO SCH (08:08)
[2018-03-18] MEDS: COLCHICINE 0.6 MG TABLET PO SCH (08:08)
[2018-03-18] MEDS: ROSUVASTATIN 10 MG TABLET PO SCH (08:08)
[2018-03-18] MEDS: LISINOPRIL 2.5 MG TABLET PO SCH ×2 (08:08→20:19)
[2018-03-18] MEDS: AMIODARONE 200 MG TABLET PO SCH (08:11)
[2018-03-18] MEDS: RANOLAZINE 500 MG TABLET PO SCH ×2 (08:11→20:19)
[2018-03-18] MEDS: ALLOPURINOL 300 MG TABLET PO SCH (08:13)
[2018-03-18] MEDS: ASCORBIC ACID 500 MG TABLET PO SCH ×2 (08:13→20:19)
[2018-03-18] MEDS: SIMETHICONE CHEW 125 MG TABLET PO SCH ×4 (08:13→20:19)
[2018-03-18] MEDS: HYDROCORTISONE 100 MG VIAL IV SCH ×3 (08:19→23:33)
[2018-03-18] MEDS: DESITIN 4OZ/NYSTATIN 15 GRAM MIXTURE PASTE TOP SCH ×2 (08:19→20:19)
[2018-03-18] MEDS: FUROSEMIDE 40 MG/4 ML VIAL IV SCH (08:19)
[2018-03-18] MEDS ORDERED: MAGNESIUM SULF RIDER 2 GM in PREMIX 1 EACH IV ONE (09:31)
[2018-03-18] MEDS: LEVOFLOXACIN INJ 750 MG in PREMIX 1 EACH IV SCH (09:55)
[2018-03-18] MEDS: MIRTAZAPINE 15 MG TABLET PO SCH (20:18)
[2018-03-18] MEDS: guaiFENesin 200 MG/10 ML UDCUP PO PRN (22:05)
[2018-03-19] MEDS: POTASSIUM CHLORIDE RIDER 20 MEQ in PREMIX 1 EACH IV PRN ×3 (00:26→08:12)
[2018-03-19] MEDS: ALBUMIN 25% 25 GM in PREMIX 1 EACH IV SCH (04:13)
[2018-03-19] MEDS: ALUMINUM/MAGNES/SIMETH MAX STR 30 ML UDCUP PO PRN ×3 (04:15→22:31)
[2018-03-19] MEDS: guaiFENesin 200 MG/10 ML UDCUP PO PRN (05:41)
[2018-03-19] MEDS: PIPERACILLIN/TAZOBACTAM 3,375 MG in SODIUM CHLORIDE 0.9% 100 ML IV SCH ×3 (06:12→22:30)
[2018-03-19 06:30] LABS: Basophils % 0.1 % (0.0-0.8); Hematocrit 30.3 VOL% (42.0-52.0); Hemoglobin 9.9 GM/DL (14.0-18.0); Immature Granulocytes % 0.9 %; Immature Granulocytes Absolute 0.09 #; Lymphocytes # 0.7 10*3/uL (1.4-4.0); Lymphocytes % 7.3 % (21.2-54.2); Mean Corpuscular HGB Conc 32.7 GM/DL (32-36); Mean Corpuscular Hemoglobin 29 PG (27-34); Mean Corpuscular Volume 88.3 FL (87-102); Mean Platelet Volume 10.5 FL (9.6-12.0); Monocytes # 0.3 10*3/uL (0.11-0.8); Monocytes % 3.6 % (1.7-12.7); Neutrophils # 8.4 10*3/uL (1.4-7.4); Neutrophils % 88.1 % (38.7-73.9); Platelet Count 157 T/CUMM (130-400); Red Blood Count 3.43 MC/CUMM (3.8-5.5); White Blood Count 9.6 T/CUMM (4-12)
[2018-03-19 06:59] LABS: Calcium 8.3 MG/DL (8.5-10.1); Osmolality,Calculated 290.4 MOS/KG (273-304); Potassium 3.7 MMOL/L (3.5-5.1)
[2018-03-19] MEDS: HYDROCORTISONE 100 MG VIAL IV SCH (07:47)
[2018-03-19] MEDS: LISINOPRIL 2.5 MG TABLET PO SCH ×2 (08:09→21:39)
[2018-03-19] MEDS: ASCORBIC ACID 500 MG TABLET PO SCH ×2 (08:09→21:39)
[2018-03-19] MEDS: RANOLAZINE 500 MG TABLET PO SCH ×2 (08:09→21:39)
[2018-03-19] MEDS: ALLOPURINOL 300 MG TABLET PO SCH (08:09)
[2018-03-19] MEDS: ROSUVASTATIN 10 MG TABLET PO SCH (08:09)
[2018-03-19] MEDS: FUROSEMIDE 40 MG/4 ML VIAL IV SCH (08:09)
[2018-03-19] MEDS: AMIODARONE 200 MG TABLET PO SCH (08:09)
[2018-03-19] MEDS: SIMETHICONE CHEW 125 MG TABLET PO SCH ×4 (08:09→22:31)
[2018-03-19] MEDS: SERTRALINE 50 MG TABLET PO SCH (08:09)
[2018-03-19] MEDS: PANTOPRAZOLE 40 MG TABLET PO SCH (08:09)
[2018-03-19] MEDS: DESITIN 4OZ/NYSTATIN 15 GRAM MIXTURE PASTE TOP SCH ×2 (08:09→22:30)
[2018-03-19] MEDS: CARVEDILOL 6.25 MG TABLET PO SCH ×2 (08:09→21:39)
[2018-03-19] MEDS: COLCHICINE 0.6 MG TABLET PO SCH (08:09)
[2018-03-19] MEDS: INSULIN REGULAR 100 UNIT/ML SUBCUT SCH ×2 (08:13→16:43)
[2018-03-19] MEDS: LEVOFLOXACIN INJ 750 MG in PREMIX 1 EACH IV SCH (08:50)
[2018-03-19] MEDS: HYDROCORTISONE 10 MG TABLET PO SCH (10:15)
[2018-03-19] MEDS: MIRTAZAPINE 15 MG TABLET PO SCH (21:39)
[2018-03-20] MEDS: HYDROCORTISONE 10 MG TABLET PO SCH ×3 (01:28→20:37)
[2018-03-20 05:30] LABS: Basophils % 0.1 % (0.0-0.8); Eosinophils # 0.1 10*3/uL (0.0-0.87); Eosinophils % 1.4 % (0.00-10.9); Hematocrit 32.2 VOL% (42.0-52.0); Hemoglobin 10.9 GM/DL (14.0-18.0); Immature Granulocytes Absolute 0.09 #; Lymphocytes # 1.4 10*3/uL (1.4-4.0); Lymphocytes % 15.1 % (21.2-54.2); Mean Corpuscular HGB Conc 33.9 GM/DL (32-36); Mean Corpuscular Hemoglobin 29 PG (27-34); Mean Corpuscular Volume 86.6 FL (87-102); Mean Platelet Volume 10.9 FL (9.6-12.0); Monocytes # 0.5 10*3/uL (0.11-0.8); Monocytes % 5.5 % (1.7-12.7); Neutrophils # 7.3 10*3/uL (1.4-7.4); Neutrophils % 76.9 % (38.7-73.9); Platelet Count 191 T/CUMM (130-400); Red Blood Count 3.72 MC/CUMM (3.8-5.5); Red Cell Distribution Width 18.3 % (9.3-17.3); White Blood Count 9.5 T/CUMM (4-12)
[2018-03-20 06:00] LABS: Calcium 8.6 MG/DL (8.5-10.1); Osmolality,Calculated 290.4 MOS/KG (273-304); Potassium 2.9 MMOL/L (3.5-5.1)
[2018-03-20] MEDS: PIPERACILLIN/TAZOBACTAM 3,375 MG in SODIUM CHLORIDE 0.9% 100 ML IV SCH ×3 (06:00→23:00)
[2018-03-20] MEDS: POTASSIUM CHLORIDE RIDER 10 MEQ in PREMIX 1 EACH IV PRN ×7 (07:23→16:35)
[2018-03-20] MEDS: ASCORBIC ACID 500 MG TABLET PO SCH ×2 (09:48→20:34)
[2018-03-20] MEDS: ROSUVASTATIN 10 MG TABLET PO SCH (09:48)
[2018-03-20] MEDS: ALLOPURINOL 300 MG TABLET PO SCH (09:48)
[2018-03-20] MEDS: AMIODARONE 200 MG TABLET PO SCH (09:48)
[2018-03-20] MEDS: SIMETHICONE CHEW 125 MG TABLET PO SCH ×4 (09:48→20:37)
[2018-03-20] MEDS: PANTOPRAZOLE 40 MG TABLET PO SCH (09:49)
[2018-03-20] MEDS: INSULIN REGULAR 100 UNIT/ML SUBCUT SCH ×2 (09:49→17:53)
[2018-03-20] MEDS: LISINOPRIL 2.5 MG TABLET PO SCH ×2 (09:49→20:34)
[2018-03-20] MEDS: SERTRALINE 50 MG TABLET PO SCH (09:49)
[2018-03-20] MEDS: COLCHICINE 0.6 MG TABLET PO SCH (09:49)
[2018-03-20] MEDS: CARVEDILOL 6.25 MG TABLET PO SCH ×2 (09:49→20:34)
[2018-03-20] MEDS: FUROSEMIDE 40 MG/4 ML VIAL IV SCH (09:52)
[2018-03-20] MEDS: RANOLAZINE 500 MG TABLET PO SCH ×2 (09:52→20:34)
[2018-03-20] MEDS: DESITIN 4OZ/NYSTATIN 15 GRAM MIXTURE PASTE TOP SCH ×2 (09:53→20:39)
[2018-03-20] MEDS: LEVOFLOXACIN INJ 750 MG in PREMIX 1 EACH IV SCH (12:15)
[2018-03-20] MEDS: MIRTAZAPINE 15 MG TABLET PO SCH (20:39)
[2018-03-21 05:47] LABS: Basophils % 0.2 % (0.0-0.8); Eosinophils # 0.1 10*3/uL (0.0-0.87); Eosinophils % 0.6 % (0.00-10.9); Hematocrit 34.1 VOL% (42.0-52.0); Hemoglobin 11.2 GM/DL (14.0-18.0); Lymphocytes % 10.3 % (21.2-54.2); Mean Corpuscular HGB Conc 32.8 GM/DL (32-36); Mean Corpuscular Hemoglobin 28 PG (27-34); Mean Corpuscular Volume 85.9 FL (87-102); Mean Platelet Volume 10.7 FL (9.6-12.0); Monocytes # 0.5 10*3/uL (0.11-0.8); Monocytes % 5.5 % (1.7-12.7); Neutrophils # 8.1 10*3/uL (1.4-7.4); Neutrophils % 82.4 % (38.7-73.9); Platelet Count 221 T/CUMM (130-400); Red Blood Count 3.97 MC/CUMM (3.8-5.5); Red Cell Distribution Width 18.3 % (9.3-17.3); White Blood Count 9.8 T/CUMM (4-12)
[2018-03-21 06:03] LABS: Calcium 8.8 MG/DL (8.5-10.1); Potassium 3.4 MMOL/L (3.5-5.1)
[2018-03-21 06:12] LABS: Prealbumin 18.7 MG/DL (20-40)
[2018-03-21] MEDS: PIPERACILLIN/TAZOBACTAM 3,375 MG in SODIUM CHLORIDE 0.9% 100 ML IV SCH (06:29)
[2018-03-21] MEDS: POTASSIUM CHLORIDE RIDER 10 MEQ in PREMIX 1 EACH IV PRN (06:29)
[2018-03-21] MEDS: MAGNESIUM SULF RIDER 2 GM in PREMIX 1 EACH IV PRN (06:30)
[2018-03-21] MEDS: CARVEDILOL 6.25 MG TABLET PO SCH ×2 (09:15→21:15)
[2018-03-21] MEDS: PANTOPRAZOLE 40 MG TABLET PO SCH (09:15)
[2018-03-21] MEDS: LISINOPRIL 2.5 MG TABLET PO SCH ×2 (09:15→21:16)
[2018-03-21] MEDS: SERTRALINE 50 MG TABLET PO SCH (09:15)
[2018-03-21] MEDS: RANOLAZINE 500 MG TABLET PO SCH ×2 (09:15→21:15)
[2018-03-21] MEDS: AMIODARONE 200 MG TABLET PO SCH (09:15)
[2018-03-21] MEDS: ROSUVASTATIN 10 MG TABLET PO SCH (09:15)
[2018-03-21] MEDS: ALLOPURINOL 300 MG TABLET PO SCH (09:15)
[2018-03-21] MEDS: COLCHICINE 0.6 MG TABLET PO SCH (09:16)
[2018-03-21] MEDS: FUROSEMIDE 40 MG/4 ML VIAL IV SCH (09:16)
[2018-03-21] MEDS: ASCORBIC ACID 500 MG TABLET PO SCH ×2 (09:16→21:15)
[2018-03-21] MEDS: DESITIN 4OZ/NYSTATIN 15 GRAM MIXTURE PASTE TOP SCH ×2 (09:16→21:16)
[2018-03-21] MEDS: LEVOFLOXACIN INJ 750 MG in PREMIX 1 EACH IV SCH (09:16)
[2018-03-21] MEDS: HYDROCORTISONE 10 MG TABLET PO SCH ×2 (09:16→21:15)
[2018-03-21] MEDS: SIMETHICONE CHEW 125 MG TABLET PO SCH ×4 (09:17→21:15)
[2018-03-21] MEDS: INSULIN REGULAR 100 UNIT/ML SUBCUT SCH ×2 (09:17→17:30)
[2018-03-21] MEDS: MEROPENEM 1,000 MG in SYRINGE 1 EACH IV SCH ×2 (12:08→20:04)
[2018-03-21] MEDS: MIRTAZAPINE 15 MG TABLET PO SCH (21:15)
[2018-03-22] MEDS: MEROPENEM 1,000 MG in SYRINGE 1 EACH IV SCH ×3 (04:22→18:50)
[2018-03-22 05:51] LABS: Basophils % 0.1 % (0.0-0.8); Eosinophils # 0.1 10*3/uL (0.0-0.87); Eosinophils % 0.8 % (0.00-10.9); Hematocrit 32.1 VOL% (42.0-52.0); Hemoglobin 10.7 GM/DL (14.0-18.0); Immature Granulocytes Absolute 0.09 #; Lymphocytes # 1.2 10*3/uL (1.4-4.0); Lymphocytes % 14.1 % (21.2-54.2); Mean Corpuscular HGB Conc 33.3 GM/DL (32-36); Mean Corpuscular Hemoglobin 29 PG (27-34); Mean Corpuscular Volume 87.2 FL (87-102); Mean Platelet Volume 10.3 FL (9.6-12.0); Monocytes # 0.6 10*3/uL (0.11-0.8); Neutrophils # 6.7 10*3/uL (1.4-7.4); Platelet Count 218 T/CUMM (130-400); Red Blood Count 3.68 MC/CUMM (3.8-5.5); Red Cell Distribution Width 18.2 % (9.3-17.3); White Blood Count 8.7 T/CUMM (4-12)
[2018-03-22 06:34] LABS: Calcium 8.3 MG/DL (8.5-10.1); Osmolality,Calculated 284.7 MOS/KG (273-304); Potassium 3.1 MMOL/L (3.5-5.1)
[2018-03-22] MEDS: POTASSIUM CHLORIDE RIDER 10 MEQ in PREMIX 1 EACH IV PRN ×6 (06:46→17:32)
[2018-03-22] MEDS ORDERED: POTASSIUM CHLORIDE 20 MEQ TABLET PO ONE ×2 (08:00→12:00)
[2018-03-22] MEDS: COLCHICINE 0.6 MG TABLET PO SCH (09:02)
[2018-03-22] MEDS: SERTRALINE 50 MG TABLET PO SCH (09:02)
[2018-03-22] MEDS: HYDROCORTISONE 10 MG TABLET PO SCH ×2 (09:02→21:36)
[2018-03-22] MEDS: ASCORBIC ACID 500 MG TABLET PO SCH ×2 (09:02→21:36)
[2018-03-22] MEDS: SIMETHICONE CHEW 125 MG TABLET PO SCH ×4 (09:02→21:36)
[2018-03-22] MEDS: FUROSEMIDE 40 MG/4 ML VIAL IV SCH ×2 (09:03→15:54)
[2018-03-22] MEDS: ALLOPURINOL 300 MG TABLET PO SCH (09:03)
[2018-03-22] MEDS: LISINOPRIL 2.5 MG TABLET PO SCH ×2 (09:03→21:36)
[2018-03-22] MEDS: PANTOPRAZOLE 40 MG TABLET PO SCH (09:03)
[2018-03-22] MEDS: CARVEDILOL 6.25 MG TABLET PO SCH ×2 (09:03→21:36)
[2018-03-22] MEDS: AMIODARONE 200 MG TABLET PO SCH (09:04)
[2018-03-22] MEDS: RANOLAZINE 500 MG TABLET PO SCH ×2 (09:05→21:36)
[2018-03-22] MEDS: ROSUVASTATIN 10 MG TABLET PO SCH (09:05)
[2018-03-22] MEDS: DESITIN 4OZ/NYSTATIN 15 GRAM MIXTURE PASTE TOP SCH ×2 (09:07→21:36)
[2018-03-22] MEDS: LEVOFLOXACIN INJ 750 MG in PREMIX 1 EACH IV SCH (09:07)
[2018-03-22] MEDS: INSULIN REGULAR 100 UNIT/ML SUBCUT SCH ×2 (09:08→15:55)
[2018-03-22] MEDS: ALUMINUM/MAGNES/SIMETH MAX STR 30 ML UDCUP PO PRN ×2 (14:31→16:27)
[2018-03-22] MEDS: MIRTAZAPINE 15 MG TABLET PO SCH (21:36)
[2018-03-23 05:31] LABS: Basophils % 0.2 % (0.0-0.8); Eosinophils # 0.1 10*3/uL (0.0-0.87); Eosinophils % 0.5 % (0.00-10.9); Hematocrit 32.3 VOL% (42.0-52.0); Hemoglobin 10.6 GM/DL (14.0-18.0); Immature Granulocytes % 0.8 %; Immature Granulocytes Absolute 0.08 #; Lymphocytes # 1.2 10*3/uL (1.4-4.0); Lymphocytes % 11.8 % (21.2-54.2); Mean Corpuscular HGB Conc 32.8 GM/DL (32-36); Mean Corpuscular Hemoglobin 28 PG (27-34); Mean Corpuscular Volume 86.4 FL (87-102); Mean Platelet Volume 10.6 FL (9.6-12.0); Monocytes # 0.7 10*3/uL (0.11-0.8); Monocytes % 7.5 % (1.7-12.7); Neutrophils # 7.7 10*3/uL (1.4-7.4); Neutrophils % 79.2 % (38.7-73.9); Platelet Count 235 T/CUMM (130-400); Red Blood Count 3.74 MC/CUMM (3.8-5.5); Red Cell Distribution Width 18.6 % (9.3-17.3); White Blood Count 9.7 T/CUMM (4-12)
[2018-03-23] MEDS: MEROPENEM 1,000 MG in SYRINGE 1 EACH IV SCH ×3 (05:36→18:08)
[2018-03-23 05:44] LABS: Calcium 8.6 MG/DL (8.5-10.1); Osmolality,Calculated 288.8 MOS/KG (273-304); Potassium 3.9 MMOL/L (3.5-5.1)
[2018-03-23 05:52] LABS: Calcium 8.7 MG/DL (8.5-10.1); Osmolality,Calculated 286.8 MOS/KG (273-304); Potassium 3.9 MMOL/L (3.5-5.1)
[2018-03-23] MEDS: POTASSIUM CHLORIDE RIDER 10 MEQ in PREMIX 1 EACH IV PRN ×2 (07:17→09:16)
[2018-03-23] MEDS: RANOLAZINE 500 MG TABLET PO SCH ×2 (09:08→22:56)
[2018-03-23] MEDS: PANTOPRAZOLE 40 MG TABLET PO SCH (09:08)
[2018-03-23] MEDS: CARVEDILOL 6.25 MG TABLET PO SCH ×2 (09:09→22:49)
[2018-03-23] MEDS: SIMETHICONE CHEW 125 MG TABLET PO SCH ×5 (09:09→22:56)
[2018-03-23] MEDS: ASCORBIC ACID 500 MG TABLET PO SCH ×2 (09:09→22:56)
[2018-03-23] MEDS: ROSUVASTATIN 10 MG TABLET PO SCH (09:09)
[2018-03-23] MEDS: COLCHICINE 0.6 MG TABLET PO SCH (09:09)
[2018-03-23] MEDS: SERTRALINE 50 MG TABLET PO SCH (09:09)
[2018-03-23] MEDS: AMIODARONE 200 MG TABLET PO SCH (09:09)
[2018-03-23] MEDS: DESITIN 4OZ/NYSTATIN 15 GRAM MIXTURE PASTE TOP SCH ×2 (09:09→22:57)
[2018-03-23] MEDS: ALLOPURINOL 300 MG TABLET PO SCH (09:09)
[2018-03-23] MEDS: LISINOPRIL 2.5 MG TABLET PO SCH ×2 (09:09→22:48)
[2018-03-23] MEDS: FUROSEMIDE 40 MG/4 ML VIAL IV SCH (09:13)
[2018-03-23] MEDS: INSULIN REGULAR 100 UNIT/ML SUBCUT SCH ×2 (09:17→16:23)
[2018-03-23] MEDS: HYDROCORTISONE 10 MG TABLET PO SCH ×2 (09:22→22:56)
[2018-03-23] MEDS: FUROSEMIDE 40 MG TABLET PO SCH ×2 (16:22→16:27)
[2018-03-23] MEDS: MIRTAZAPINE 15 MG TABLET PO SCH (22:57)
[2018-03-23] MEDS ORDERED: SODIUM CHLORIDE 0.9% 500 ML IV ONE (23:47)
[2018-03-24] MEDS ORDERED: SODIUM CHLORIDE 0.9% 500 ML IV ONE (01:04)
[2018-03-24] MEDS: MEROPENEM 1,000 MG in SYRINGE 1 EACH IV SCH ×2 (03:54→13:08)
[2018-03-24 04:22] LABS: Basophils % 0.2 % (0.0-0.8); Eosinophils # 0.1 10*3/uL (0.0-0.87); Eosinophils % 1.2 % (0.00-10.9); Hematocrit 31.7 VOL% (42.0-52.0); Hemoglobin 10.5 GM/DL (14.0-18.0); Immature Granulocytes % 1.2 %; Immature Granulocytes Absolute 0.11 #; Lymphocytes # 0.9 10*3/uL (1.4-4.0); Lymphocytes % 9.9 % (21.2-54.2); Mean Corpuscular HGB Conc 33.1 GM/DL (32-36); Mean Corpuscular Hemoglobin 29 PG (27-34); Mean Corpuscular Volume 87.6 FL (87-102); Mean Platelet Volume 10.7 FL (9.6-12.0); Monocytes # 0.7 10*3/uL (0.11-0.8); Monocytes % 7.6 % (1.7-12.7); Neutrophils # 7.1 10*3/uL (1.4-7.4); Neutrophils % 79.9 % (38.7-73.9); Platelet Count 250 T/CUMM (130-400); Red Blood Count 3.62 MC/CUMM (3.8-5.5); Red Cell Distribution Width 18.5 % (9.3-17.3); White Blood Count 8.8 T/CUMM (4-12)
[2018-03-24 04:53] LABS: Calcium 8.3 MG/DL (8.5-10.1); Potassium 3.6 MMOL/L (3.5-5.1)
[2018-03-24] MEDS ORDERED: FUROSEMIDE 40 MG TABLET PO ONE (08:14)
[2018-03-24] MEDS: INSULIN REGULAR 100 UNIT/ML SUBCUT SCH (08:19)
[2018-03-24] MEDS: AMIODARONE 200 MG TABLET PO SCH (08:44)
[2018-03-24] MEDS: HYDROCORTISONE 10 MG TABLET PO SCH (08:44)
[2018-03-24] MEDS: COLCHICINE 0.6 MG TABLET PO SCH (08:44)
[2018-03-24] MEDS: ASCORBIC ACID 500 MG TABLET PO SCH (08:44)
[2018-03-24] MEDS: SIMETHICONE CHEW 125 MG TABLET PO SCH ×2 (08:44→13:08)
[2018-03-24] MEDS: RANOLAZINE 500 MG TABLET PO SCH (08:44)
[2018-03-24] MEDS: ROSUVASTATIN 10 MG TABLET PO SCH (08:44)
[2018-03-24] MEDS: ALLOPURINOL 300 MG TABLET PO SCH (08:45)
[2018-03-24] MEDS: SERTRALINE 50 MG TABLET PO SCH (08:45)
[2018-03-24] MEDS: POTASSIUM CHLORIDE RIDER 10 MEQ in PREMIX 1 EACH IV PRN (08:48)
[2018-03-24] MEDS: PANTOPRAZOLE 40 MG TABLET PO SCH (08:53)
[2018-03-24] MEDS: DESITIN 4OZ/NYSTATIN 15 GRAM MIXTURE PASTE TOP SCH (08:53)
[2018-03-24] MEDS ORDERED: FUROSEMIDE 40 MG TABLET PO SCH (09:00)
[2018-03-24] MEDS: LISINOPRIL 2.5 MG TABLET PO SCH (10:19)
[2018-03-24] MEDS: CARVEDILOL 6.25 MG TABLET PO SCH (10:19)
[2018-03-24 12:28] VITALS: BP 111/58
[2018-03-24] MEDS: FUROSEMIDE 40 MG TABLET PO SCH (14:14)
== END 2018-03-24 12:50 | DRG 377 ==
LOC: EDBD → EDUNIT# → N.ED 05:30 → N.EDINP 08:27 → SUATTDRO 08:27 → N.ICU 09:27 → N.TELEN 03-19 13:41
PROVIDERS: ADMIT Internal Medicine